=== PATIENT | female | born 1985 | race Caucasian/White ===

== ENCOUNTER 2017-03-18 12:08 | Emergency (ER) | payer MEDICAID ==
[2017-03-18] MEDS ORDERED: MAG HYDROX/AL HYDROX/SIMETH SUSP 30 ML UDCUP PO ONE (12:24)
[2017-03-18] MEDS ORDERED: METOCLOPRAMIDE HCL ORAL SOLN 10 MG/10 ML UDCUP PO ONE (12:24)
[2017-03-18] MEDS ORDERED: LIDOCAINE 2% VISCOUS SOLN 20 ML UDCUP PO ONE (12:24)
--- NOTE | 2017-03-18 12:26 | ER Document Report ---
ED Medical Screen (RME) - General Chief Complaint: Abdominal Cramping Stated Complaint: VOMITING, ABDOMINAL PAIN Time Seen by Provider: 03/18/17 12:21 Mode of Arrival: Ambulatory Information source: Patient TRAVEL OUTSIDE OF THE [place] IN LAST 30 DAYS: No - HPI Patient complains to provider of: Abdominal pain, nausea and vomiting Onset: Other - 2 weeks Onset/Duration: Waxing and waning Notes: 03/18/17 12:25 Patient is a 31-year-old female who presents to the emergency room complaining of abdominal pain with nausea and vomiting has been waxing and waning over the past 2 weeks, she reports a burning sensation with diffuse abdominal cramping, vomiting and diarrhea, no fevers, no dysuria hematuria, denies being , was recently seen at urgent care for similar symptoms and provided with antinausea medication which is not helping - Related Data Allergies/Adverse Reactions: No Known Allergies Allergy (Verified 03/18/17 12:17) Past Medical History - Social History Frequency of alcohol use: None Drug Abuse: None Renal/ Medical History: Denies: Hx Peritoneal Dialysis Past Surgical History: Reports: Hx Gynecologic Surgery - R ovary cyst removed Physical Exam - Vital signs Vitals: Temp Pulse Resp BP Pulse Ox 98.0 F 102 H 16 127/78 H 96 03/18/17 12:14 03/18/17 12:14 03/18/17 12:14 03/18/17 12:14 03/18/17 12:14 Course - Vital Signs Vital signs: Temp Pulse Resp BP Pulse Ox 98.0 F 102 H 16 127/78 H 96 03/18/17 12:14 03/18/17 12:14 03/18/17 12:14 03/18/17 12:14 03/18/17 12:14
[2017-03-18 12:53] LABS: ABSOLUTE EOSINOPHILS # (AUTO) 0.1 10^3/uL (0.0-0.6); ABSOLUTE MONOCYTES (AUTO) 0.4 10^3/uL (0.1-1.4); ABSOLUTE NEUT (AUTO) 4.2 10^3/uL (1.7-8.2); BASOPHILS % (AUTO) 0.6 % (0-2); EOSINOPHILS % (AUTO) 1.1 % (0-6); HEMATOCRIT 40.5 % (36.0-47.0); HEMOGLOBIN 13.6 g/dL (12.0-15.5); HGB HCT DIFFERENCE 0.3; LYMPHOCYTES % (AUTO) 29.7 % (13-45); MEAN CORPUSCULAR HEMOGLOBIN 30.4 pg (27.0-33.4); MEAN CORPUSCULAR HGB CONC 33.7 g/dL (32.0-36.0); MEAN CORPUSCULAR VOLUME 90 fl (80-97); MONOCYTES % (AUTO) 5.3 % (3-13); RED BLOOD COUNT 4.48 10^6/uL (3.72-5.28); RED CELL DISTRIBUTION WIDTH 12.1 % (11.5-14.0); SEGMENTED NEUTROPHILS % (AUTO) 63.3 % (42-78); WHITE BLOOD COUNT 6.6 10^3/uL (4.0-10.5)
[2017-03-18 12:58] LABS: APPEARANCE,URINE CLEAR; BILIRUBIN,URINE NEGATIVE (NEGATIVE); GLUCOSE, URINE NEGATIVE (NEGATIVE); KETONES,URINE NEGATIVE (NEGATIVE); LEUKOCYTE ESTERASE,URINE NEGATIVE (NEGATIVE); NITRITE,URINE NEGATIVE (NEGATIVE); PROTEIN,URINE NEGATIVE (NEGATIVE); URINE SPECIFIC GRAVITY 1.001; UROBILINOGEN,URINE NEGATIVE mg/dL (<2.0)
--- NOTE | 2017-03-18 13:06 | ER Document Report ---
ED GI/ - General Chief Complaint: Abdominal Cramping Stated Complaint: VOMITING, ABDOMINAL PAIN Time Seen by Provider: 03/18/17 12:21 Mode of Arrival: Ambulatory Notes: Patient is complaining of intermittent abdominal pain for the past 2 weeks. She says she has it daily, but at times is not as severe as at other times. She relates that it is worse after eating. She indicates that the pain is located primarily in the center of the abdomen, mostly periumbilical. Not in the right upper quadrant and not in the right lower quadrant. She has been having daily nausea and vomits at least once a day during this past 2 weeks. She is also had daily diarrhea. Has not noticed any blood in either of these specimens. Says she has a problem with chronic urinary frequency, but has been checked and never had anything significant found. Denies any fever. LMP 8/9, regular, on control pills. PMH: Laparoscopy for ruptured ovarian cyst. On medication for depression and anxiety. Denies being more anxious or nervous than usual. Patient also says that she had been a heavy drinker of alcohol for many years, but stopped about a month and a half ago and has not had any alcohol during that time. Smokes cigarettes. TRAVEL OUTSIDE OF THE [place] IN LAST 30 DAYS: No - Related Data Allergies/Adverse Reactions: No Known Allergies Allergy (Verified 03/18/17 12:17) Home Medications: Current Home Medications Alprazolam [Xanax 0.5 mg Tablet] 0.5 mg PO PRN PRN 03/18/17 [History] Sertraline HCl [Zoloft 50 mg Tablet] 50 mg PO DAILY 03/18/17 [History] Past Medical History - General Information source: Patient - Social History Smoking Status: Current Some Day Smoker Frequency of alcohol use: None Drug Abuse: None Family History: Reviewed & Not Pertinent Psychiatric Medical History: Reports: Hx Anxiety, Hx Depression Past Surgical History: Reports: Hx Gynecologic Surgery - R ovary cyst removed by laparoscopy Review of Systems - Review of Systems Notes: REVIEW OF SYSTEMS: CONSTITUTIONAL : Denies fever. EENT: Denies eye, ear, nose or mouth or throat pain or other symptoms. CARDIOVASCULAR: Denies chest pain. RESPIRATORY: Denies cough, chest congestion, or shortness of breath. GASTROINTESTINAL: See HPI. GENITOURINARY: Denies difficulty or painful urinating, urinary frequency, blood in urine. MUSCULOSKELETAL: Denies back or neck pain. Denies joint pain or swelling. SKIN: Denies rash or skin lesions. NEUROLOGICAL: Denies LOC or altered mental status. Denies headache. Denies sensory loss or motor deficits. ALL OTHER SYSTEMS REVIEWED AND NEGATIVE. Physical Exam - Vital signs Vitals: Temp Pulse Resp BP Pulse Ox 98.0 F 102 H 16 127/78 H 96 03/18/17 12:14 03/18/17 12:14 03/18/17 12:14 03/18/17 12:14 03/18/17 12:14 Interpretation: Normal - Notes Notes: PHYSICAL EXAMINATION: GENERAL: Well-appearing, in no acute distress. Vital signs are all normal. HEAD: Atraumatic, normocephalic. ENT: Moist mucous membranes. NECK: Normal range of motion, supple. LUNGS: Breath sounds clear and equal bilaterally. HEART: Regular rate and rhythm without murmurs. ABDOMEN: Soft, only mild periumbilical tenderness. Definitely no guarding or rebound. BACK: No tenderness throughout entire back. EXTREMITIES: Normal range of motion without pain. NEUROLOGICAL: Normal speech, normal gait. Normal sensory, motor, and reflex exams. Awake, alert, and oriented x3. Cranial nerves normal. PSYCH: Normal mood, normal affect. SKIN: Warm, dry, no rashes. Course - Vital Signs Vital signs: Temp Pulse Resp BP Pulse Ox 98.0 F 102 H 19 119/81 98 03/18/17 12:14 03/18/17 12:14 03/18/17 14:45 03/18/17 14:45 03/18/17 14:45 - Laboratory Result Diagrams: 03/18/17 12:44 03/18/17 11:24 Laboratory results interpreted by me: 03/18/17 03/18/17 11:24 12:44 Total Bilirubin 1.7 H Urine Blood SMALL H Discharge - Discharge Clinical Impression: Abdominal pain, Irritable bowel syndrome (IBS) Condition: Stable Disposition: HOME, SELF-CARE Additional Instructions: ABDOMINAL PAIN: There are many causes of abdominal pain. Pain can mean a serious problem requiring surgery (such as appendicitis). It can also be an innocent problem that goes away on its own (such as a viral infection). Often, time must pass to determine the cause of pain. The physician does not feel that hospitalization is necessary, at present. Things may change within the next 24 hours. Call the doctor or come back for re- examination if any problems occur, such as: (1) Pain that becomes more severe, steady, or becomes concentrated in one specific area. Also, pain that is more severe with movement or coughing. (2) Vomiting that persists or becomes more frequent. (3) Blood in the vomitus, urine, or bowel movements. Blood in the stool may have a tarry or black appearance. (4) Shaking chills or fever greater than 100 degrees F. (5) The abdomen becomes more distended or swollen. (6) Bowel movements cease. (7) Failure to improve as expected. NORMAL EXAM AND WORKUP: At this time, your examination and workup show no significant abnormality. No significant abnormal physical findings are noted. All laboratory, EKG, and imaging (x-ray, CT scans, ultrasound) studies that were ordered show no significant abnormality. Although your examination and all studies that were ordered showed no significant abnormal finding, there are no examinations and no studies that are 100% accurate. There is always the possibility that some abnormality could exist and not be detected with physical examination or within the limits and capabilities of laboratory and other studies. You should return or follow up as you were instructed on your visit today for further evaluation if your symptoms do not resolve. You may have irritable Bowel Syndrome The cause of irritable bowel syndrome is unknown. Although often called "colitis", it is not an infection or inflammatory condition. Symptoms vary, but can include periodic abdominal cramping, migratory abdominal pains, diarrhea, or constipation. Commonly, a few days of constipation is followed by loose stools, then constipation begins again. There is no specific test for irritable bowel syndrome. The disease is diagnosed by history and exam findings, and by finding no evidence of other disease. Irritable bowel syndrome is treated by making the stool softer and bulkier. Regular meals, including plenty of soluble fiber, help. Avoid foods which provoke cramping. Stool "bulking agents," such as Metamucil, help. Expect occasional flare-ups. Call the physician if symptoms worsen, such as severe or constant abdominal pain, fever, blood in the stool, increasing constipation, or more frequent or severe diarrhea. ANTISPASMODICS: You have been given a prescription for an antispasmodic medicine. This type of drug is used to decrease cramping and pain in the intestines. It is also used to decrease secretion of internal fluids (such as stomach acid in ulcer disease or pancreatic juice in pancreas disease). This medicine may cause drowsiness, especially with the first dose. Do not operate machinery or drive until all side effects have resolved. Do not combine with alcohol. Other common side effects include dry mouth and eyes. In older persons, antispasmodics can occasionally cause urinary retention, constipation, or trouble focusing the eyes. Glaucoma may be worsened by this medicine. FOLLOW-UP CARE: If you have been referred to a physician for follow-up care, call the physician s office for an appointment as you were instructed or within the next two days. If you experience worsening or a significant change in your symptoms, notify the physician immediately or return to the Emergency Department at any time for re-evaluation. If your symptoms do not resolve with this treatment plan, I recommend he follow- up with a environmental health technician for further evaluation. Prescriptions: Dicyclomine HCl [Bentyl 20 mg Tablet] 40 mg PO QIDP PRN #60 tablet PRN Reason: Forms: Return to Work
[2017-03-18 13:14] LABS: ALANINE AMINOTRANSFERASE 33 U/L (9-52); ALBUMIN 4.6 g/dL (3.5-5.0); ALKALINE PHOSPHATASE 57 U/L (38-126); ANION GAP 12 (5-19); ASPARTATE AMINO TRANSFERASE 27 U/L (14-36); BILIRUBIN,DIRECT 0.3 mg/dL (0.0-0.4); BILIRUBIN,TOTAL 1.7 mg/dL (0.2-1.3); BLOOD UREA NITROGEN 7 mg/dL (7-20); CALCIUM 10.1 mg/dL (8.4-10.2); CARBON DIOXIDE 29 mmol/L (22-30); CHLORIDE 101 mmol/L (98-107); CREATININE RESULT 0.67 mg/dL (0.52-1.25); GLUCOSE 97 mg/dL (75-110); LIPASE 91.9 U/L (23-300); POTASSIUM 3.8 mmol/L (3.6-5.0); SODIUM 141.6 mmol/L (137-145); TOTAL PROTEIN 8.1 g/dL (6.3-8.2)
[2017-03-18 15:01] VITALS: BP 119/81
== END 2017-03-18 15:00 | disposition home or self-care (01) ==
LOC: ER 12:08
DX: R10.33 Periumbilical pain (principal); K58.9 Irritable bowel syndrome, unspecified; F17.200 Nicotine dependence, unspecified, uncomplicated
CPT/HCPCS: 99284; 36415; 83690; 84703; 85025; 80053; 81001; J3490 ×3

== ENCOUNTER 2017-06-19 09:16 | Emergency (ER) | payer MEDICAID ==
[2017-06-19] MEDS ORDERED: ONDANSETRON HCL INJ/PF 4 MG/2 ML SDV IV ONE (09:35)
[2017-06-19] MEDS ORDERED: NORMAL SALINE 1000 ML 1,000 ML IV ONE (09:35)
[2017-06-19] MEDS ORDERED: KETOROLAC TROMETHAMINE 60 MG/2 ML SDV IV ONE (09:35)
--- NOTE | 2017-06-19 09:36 | ER Document Report ---
ED Medical Screen (RME) - General Mode of Arrival: Ambulatory Information source: Patient TRAVEL OUTSIDE OF THE [place] IN LAST 30 DAYS: No - General Chief Complaint: Nausea/Vomiting/Diarrhea Stated Complaint: VOMITING ABDOMINAL PAIN Time Seen by Provider: 06/19/17 09:28 Notes: Patient is a 31 year old female presenting to the emergency department complaining of nausea and vomiting onset 4 days ago. Patient states that she has been dry heaving. Patient states she also has a dull pain in epigastric area and has been dehydrated. Patient was last seen 2 months ago and diagnosed with possible IBS. (JEWEL MIRELES) - Related Data Allergies/Adverse Reactions: No Known Allergies Allergy (Verified 06/19/17 09:26) Past Medical History - General Information source: Patient - Social History Cigarette use (# per day): Yes Chew tobacco use (# tins/day): No Frequency of alcohol use: None Drug Abuse: None Renal/ Medical History: Denies: Hx Peritoneal Dialysis Psychiatric Medical History: Reports: Hx Anxiety, Hx Depression Past Surgical History: Reports: Hx Gynecologic Surgery - R ovary cyst removed by laparoscopy Physical Exam - Vital signs Vitals: Temp Pulse Resp BP Pulse Ox 97.6 F 71 20 111/79 98 06/19/17 09:24 06/19/17 09:24 06/19/17 09:24 06/19/17 09:24 06/19/17 09:24 - Notes Notes: Heart and lungs are normal. epigastrium tender to palpation. (JEWEL MIRELES) - Vital Signs Vital signs: Temp Pulse Resp BP Pulse Ox 97.6 F 71 20 111/79 98 06/19/17 09:24 06/19/17 09:24 06/19/17 09:24 06/19/17 09:24 06/19/17 09:24
[2017-06-19 10:03] LABS: ABSOLUTE LYMPHOCYTES (AUTO) 1.7 10^3/uL (0.5-4.7); ABSOLUTE MONOCYTES (AUTO) 0.5 10^3/uL (0.1-1.4); ABSOLUTE NEUT (AUTO) 7.1 10^3/uL (1.7-8.2); APPEARANCE,URINE CLEAR; BASOPHILS % (AUTO) 0.5 % (0-2); BILIRUBIN,URINE NEGATIVE (NEGATIVE); EOSINOPHILS % (AUTO) 0.3 % (0-6); GLUCOSE, URINE NEGATIVE (NEGATIVE); HEMATOCRIT 43.6 % (36.0-47.0); HGB HCT DIFFERENCE 1.4; KETONES,URINE NEGATIVE (NEGATIVE); LEUKOCYTE ESTERASE,URINE NEGATIVE (NEGATIVE); LYMPHOCYTES % (AUTO) 18.4 % (13-45); MEAN CORPUSCULAR HEMOGLOBIN 29.7 pg (27.0-33.4); MEAN CORPUSCULAR HGB CONC 34.5 g/dL (32.0-36.0); MEAN CORPUSCULAR VOLUME 86 fl (80-97); MONOCYTES % (AUTO) 4.9 % (3-13); NITRITE,URINE NEGATIVE (NEGATIVE); PROTEIN,URINE NEGATIVE (NEGATIVE); RED BLOOD COUNT 5.07 10^6/uL (3.72-5.28); RED CELL DISTRIBUTION WIDTH 13.1 % (11.5-14.0); SEGMENTED NEUTROPHILS % (AUTO) 75.9 % (42-78); URINE SPECIFIC GRAVITY 1.001; UROBILINOGEN,URINE NEGATIVE mg/dL (<2.0); WHITE BLOOD COUNT 9.3 10^3/uL (4.0-10.5)
[2017-06-19 10:29] LABS: ALANINE AMINOTRANSFERASE 41 U/L (9-52); ALKALINE PHOSPHATASE 101 U/L (38-126); ASPARTATE AMINO TRANSFERASE 34 U/L (14-36); BILIRUBIN,DIRECT 0.6 mg/dL (0.0-0.4); BILIRUBIN,TOTAL 1.9 mg/dL (0.2-1.3); BLOOD UREA NITROGEN 5 mg/dL (7-20); CALCIUM 10.6 mg/dL (8.4-10.2); CREATININE RESULT 0.72 mg/dL (0.52-1.25); GLUCOSE 95 mg/dL (75-110); LIPASE 109.2 U/L (23-300); POTASSIUM 3.7 mmol/L (3.6-5.0); TOTAL PROTEIN 8.2 g/dL (6.3-8.2)
[2017-06-19 10:39] LABS: CARBON DIOXIDE 22 mmol/L (22-30); CHLORIDE 102 mmol/L (98-107); SODIUM 143.9 mmol/L (137-145)
[2017-06-19 10:43] LABS: ANION GAP 20 (5-19)
[2017-06-19] MEDS ORDERED: RINGERS SOLUTION,LACTATED 1,000 ML IV ONE (10:43)
--- NOTE | 2017-06-19 10:49 | ER Document Report ---
ED GI/ - General Chief Complaint: Nausea/Vomiting/Diarrhea Stated Complaint: VOMITING ABDOMINAL PAIN Time Seen by Provider: 06/19/17 09:28 Mode of Arrival: Ambulatory Notes: Patient says that she has been having abdominal "burning" for the past week, primarily located in the epigastric region. She has been vomiting for the past 4 days and has had diarrhea for the past week. No blood in either of these. Denies any fever. Patient had a very similar presentation here about 3 months ago, in March, and her workup was normal and it was postulated that she may be having irritable bowel syndrome. Patient has anxiety and depression and is on Zoloft and Xanax normally. Her only abdominal procedure was a laparoscopic procedure for ruptured ovarian cyst. Patient stop smoking about 5 days ago. Denies alcohol. TRAVEL OUTSIDE OF THE [place] IN LAST 30 DAYS: No - Related Data Allergies/Adverse Reactions: No Known Allergies Allergy (Verified 06/19/17 09:26) Past Medical History - General Information source: Patient - Social History Smoking Status: Current Every Day Smoker Cigarette use (# per day): Yes - Stopped smoking 5 days ago Chew tobacco use (# tins/day): No Frequency of alcohol use: None Drug Abuse: None Family History: Reviewed & Not Pertinent Patient has suicidal ideation: No Patient has homicidal ideation: No GI Medical History: Reports: Hx Irritable Bowel - Possible Psychiatric Medical History: Reports: Hx Anxiety, Hx Depression Past Surgical History: Reports: Hx Gynecologic Surgery - R ovary cyst removed by laparoscopy Review of Systems - Review of Systems Notes: REVIEW OF SYSTEMS: CONSTITUTIONAL : Denies fever. EENT: Denies eye, ear, nose or mouth or throat pain or other symptoms. CARDIOVASCULAR: Denies chest pain. RESPIRATORY: Denies cough, chest congestion, or shortness of breath. GASTROINTESTINAL: See HPI. GENITOURINARY: Denies difficulty or painful urinating, urinary frequency, blood in urine. MUSCULOSKELETAL: Denies back or neck pain. Denies joint pain or swelling. SKIN: Denies rash or skin lesions. NEUROLOGICAL: Denies LOC or altered mental status. Denies headache. Denies sensory loss or motor deficits. ALL OTHER SYSTEMS REVIEWED AND NEGATIVE. Physical Exam - Vital signs Vitals: Temp Pulse Resp BP Pulse Ox 97.6 F 71 20 111/79 98 06/19/17 09:24 06/19/17 09:24 06/19/17 09:24 06/19/17 09:24 06/19/17 09:24 Interpretation: Normal - Notes Notes: PHYSICAL EXAMINATION: GENERAL: Well-appearing, in no acute distress. Vital signs are all normal. HEAD: Atraumatic, normocephalic. ENT: oropharynx clear without exudates. Moist mucous membranes. NECK: Normal range of motion, supple. LUNGS: Breath sounds clear and equal bilaterally. HEART: Regular rate and rhythm without murmurs. ABDOMEN: Soft, tender epigastrium. No guarding or rebound. No masses felt. BACK: No tenderness throughout entire back. EXTREMITIES: Normal range of motion without pain. NEUROLOGICAL: Normal speech, normal gait. Normal sensory, motor, and reflex exams. Awake, alert, and oriented x3. Cranial nerves normal. PSYCH: Normal mood, normal affect. Anxious. SKIN: Warm, dry, no rashes. Course - Re-evaluation Re-evalutation: 06/19/17 12:51 Patient says that the Bentyl did not help her discomfort any. I prescribed this for her after her last visit when I was with her attending physician and she says they have not helped. She tells me she is in the midst of having a bad month and ran out of her Xanax and will be able to get anymore until she is seen by her counselor at [facility] on Thursday. I agreed to write her a prescription for a dozen Xanax to hold her until she can be seen Thursday. She requested to be discharged with some Zofran, as well. Abdomen remains very soft and nontender. - Vital Signs Vital signs: Temp Pulse Resp BP Pulse Ox 97.6 F 71 20 111/79 98 06/19/17 09:24 06/19/17 09:24 06/19/17 09:24 06/19/17 09:24 06/19/17 09:24 - Laboratory Result Diagrams: 06/19/17 09:45 06/19/17 09:45 Laboratory results interpreted by me: 06/19/17 06/19/17 09:45 09:45 Anion Gap 20 H BUN 5 L Calcium 10.6 H Total Bilirubin 1.9 H Direct Bilirubin 0.6 H Urine Blood SMALL H Discharge - Discharge Clinical Impression: Abdominal pain, Anxiety Condition: Stable Disposition: HOME, SELF-CARE Additional Instructions: ABDOMINAL PAIN: There are many causes of abdominal pain. Pain can mean a serious problem requiring surgery (such as appendicitis). It can also be an innocent problem that goes away on its own (such as a viral infection). Often, time must pass to determine the cause of pain. The physician does not feel that hospitalization is necessary, at present. Things may change within the next 24 hours. Call the doctor or come back for re- examination if any problems occur, such as: (1) Pain that becomes more severe, steady, or becomes concentrated in one specific area. Also, pain that is more severe with movement or coughing. (2) Vomiting that persists or becomes more frequent. (3) Blood in the vomitus, urine, or bowel movements. Blood in the stool may have a tarry or black appearance. (4) Shaking chills or fever greater than 100 degrees F. (5) The abdomen becomes more distended or swollen. (6) Bowel movements cease. (7) Failure to improve as expected. NORMAL EXAM AND WORKUP: At this time, your examination and workup show no significant abnormality. No significant abnormal physical findings are noted. All laboratory, EKG, and imaging (x-ray, CT scans, ultrasound) studies that were ordered show no significant abnormality. Although your examination and all studies that were ordered showed no significant abnormal finding, there are no examinations and no studies that are 100% accurate. There is always the possibility that some abnormality could exist and not be detected with physical examination or within the limits and capabilities of laboratory and other studies. You should return or follow up as you were instructed on your visit today for further evaluation if your symptoms do not resolve. TORADOL INJECTION: You have been given an injection of ketorolac tromethamine (Toradol). This is an excellent, safe drug for pain control. It also has potent antiinflammatory action. You should have significant pain relief within about one hour. Toradol is not addicting and is non-sedating. It does not interfere with driving or work. Call or return if you develop itching, hives, shortness of breath, or rash. ANTINAUSEA MEDICATION: You have been given a medication to suppress nausea and vomiting. This type of medication can be given as a shot, pill, or suppository. It will usually last for many hours. Pills and shots usually last six to eight hours, suppositories last about 12 hours. For the typical illness, only one or two doses of the medication may be necessary. Mild lightheadedness may occur. This type of medicine can cause drowsiness. Do not drive or operate dangerous machinery while under its influence. Do not mix with alcohol. See your doctor at once if you have muscle spasms or tightness, or uncontrollable motions (particularly of the neck, mouth, or jaw). Persistent vomiting or severe lightheadedness should also be evaluated by the physician. Anxiety The physician feels that some of your health problems are being caused by anxiety. Anxiety affects your health in many ways. Anxiety alone can cause palpitations, sweats, chest pains, abdominal pains, shortness of breath, and headaches. It contributes to ulcer disease, high blood pressure, irritable bowel syndrome, and has been shown to cause flare-ups of many other diseases. Anxiety is not a simple disorder to treat. If the anxiety is due to recent life stresses, you may simply need time to "work through" the changes. If the anxiety is due to an underlying unhappiness with yourself or due to psychiatric disturbance, professional help will be needed. Your physician can refer you for further help if needed. Anti-anxiety medication is occasionally given if the stress is acute or if you are having trouble sleeping. Chronic or frequent use of these medications is not a good idea because the body becomes reliant on it, preventing you from dealing with life's normal stresses. Benzodiazepines You have been given a benzodiazepine medication. Examples of this type of medicine include Valium, Xanax, Librium, Ativan, and Halcion. Benzodiazepines have many uses. Medications of this type are used for insomnia, anxiety, muscle spasms, seizures, and drug and alcohol withdrawal. You may become very drowsy when you first take the medication. You should not drive or operate machinery while under its effects. Do not combine the medication with alcohol, or with any other medication without talking to your doctor. Do not take if without specific instruction from your report clerk. Some benzodiazepines may have harmful interactions with oral antifungal medicines such as ketoconazole, itraconazole, and nefazodone. If you are taking an antifungal medicine, discuss this with your doctor before taking benzodiazepines. FOLLOW-UP CARE: If you have been referred to a physician for follow-up care, call the physician s office for an appointment as you were instructed or within the next two days. If you experience worsening or a significant change in your symptoms, notify the physician immediately or return to the Emergency Department at any time for re-evaluation. Keep your appointment Thursday at [facility]. Prescriptions: Alprazolam [Xanax 0.5 mg Tablet] 0.5 mg PO TIDP PRN #12 tablet PRN Reason: Ondansetron [Zofran Odt 4 mg Tablet] 1 - 2 tab PO Q4H PRN #10 tab.rapdis PRN Reason: For Nausea/Vomiting
[2017-06-19] MEDS ORDERED: DICYCLOMINE HCL 20 MG TABLET PO ONE (11:22)
[2017-06-19 13:08] VITALS: BP 121/65
== END 2017-06-19 13:19 | disposition home or self-care (01) ==
LOC: ER 09:16
DX: R10.9 Unspecified abdominal pain (principal); F41.9 Anxiety disorder, unspecified; R11.2 Nausea with vomiting, unspecified; R19.7 Diarrhea, unspecified; F32.9 Major depressive disorder, single episode, unspecified; Z79.899 Other long term (current) drug therapy; F17.210 Nicotine dependence, cigarettes, uncomplicated
CPT/HCPCS: 99284; 96361; 96374; 96375; 36415; 83690; 84703; 85025; 80053; 81001; J3490; J1885; J2405; J7030; J7120

== ENCOUNTER 2018-05-21 17:16 | Emergency (ER) | payer SELFPAY ==
[2018-05-21 17:45] LABS: APPEARANCE,URINE CLEAR; BILIRUBIN,URINE NEGATIVE (NEGATIVE); COLOR,URINE YELLOW; GLUCOSE, URINE NEGATIVE (NEGATIVE); KETONES,URINE NEGATIVE (NEGATIVE); LEUKOCYTE ESTERASE,URINE NEGATIVE (NEGATIVE); NITRITE,URINE NEGATIVE (NEGATIVE); PROTEIN,URINE NEGATIVE (NEGATIVE); URINE SPECIFIC GRAVITY 1.015; UROBILINOGEN,URINE NEGATIVE mg/dL (<2.0)
--- NOTE | 2018-05-21 17:47 | ER Document Report ---
ED Medical Screen (RME) - General Chief Complaint: Vag Bleeding, +preg <12wks Stated Complaint: VAGINAL BLEEDING Time Seen by Provider: 05/21/18 17:43 Mode of Arrival: Ambulatory Information source: Patient Notes: 32-year-old is about 8 weeks . She had vaginal bleeding this morning. She has right-sided pelvic pain and right flank pain. No dysuria frequency or urgency. When she was evacuated on April 22 in [place] they did a quantitative and it was 202 days later was 600. The transvaginal ultrasound at that time showed a gestational sac. She has not had any bleeding except for today. She knows that she is Rh- and will need RhoGam. Vital signs are stable. TRAVEL OUTSIDE OF THE [place] IN LAST 30 DAYS: No - Related Data Allergies/Adverse Reactions: No Known Allergies Allergy (Verified 05/21/18 17:18) Past Medical History Renal/ Medical History: Denies: Hx Peritoneal Dialysis GI Medical History: Reports: Hx Irritable Bowel - Possible Psychiatric Medical History: Reports: Hx Anxiety, Hx Depression Past Surgical History: Reports: Hx Gynecologic Surgery - R ovary cyst removed by laparoscopy Physical Exam - Vital signs Vitals: Temp Pulse Resp BP Pulse Ox 98.1 F 89 16 120/72 98 05/21/18 17:28 05/21/18 17:28 05/21/18 17:28 05/21/18 17:28 05/21/18 17:28 Course - Vital Signs Vital signs: Temp Pulse Resp BP Pulse Ox 98.1 F 89 16 120/72 98 05/21/18 17:28 05/21/18 17:28 05/21/18 17:28 05/21/18 17:28 05/21/18 17:28 - Laboratory Laboratory results interpreted by me: 05/21/18 17:20 Urine Blood SMALL H
[2018-05-21 18:38] LABS: ABSOLUTE BASOPHILS # (AUTO) 0.1 10^3/uL (0.0-0.2); ABSOLUTE EOSINOPHILS # (AUTO) 0.1 10^3/uL (0.0-0.6); ABSOLUTE LYMPHOCYTES (AUTO) 2.2 10^3/uL (0.5-4.7); ABSOLUTE MONOCYTES (AUTO) 0.5 10^3/uL (0.1-1.4); ABSOLUTE NEUT (AUTO) 6.1 10^3/uL (1.7-8.2); BASOPHILS % (AUTO) 0.6 % (0-2); EOSINOPHILS % (AUTO) 1.3 % (0-6); HEMATOCRIT 42.4 % (36.0-47.0); HEMOGLOBIN 14.7 g/dL (12.0-15.5); LYMPHOCYTES % (AUTO) 24.8 % (13-45); MEAN CORPUSCULAR HEMOGLOBIN 31.2 pg (27.0-33.4); MEAN CORPUSCULAR HGB CONC 34.8 g/dL (32.0-36.0); MEAN CORPUSCULAR VOLUME 90 fl (80-97); MONOCYTES % (AUTO) 5.5 % (3-13); PLATELET COUNT 267 10^3/uL (150-450); RED BLOOD COUNT 4.72 10^6/uL (3.72-5.28); RED CELL DISTRIBUTION WIDTH 12.9 % (11.5-14.0); SEGMENTED NEUTROPHILS % (AUTO) 67.8 % (42-78); TOTAL CELLS COUNTED % (AUTO) 100 %
--- NOTE | 2018-05-21 18:50 | ER Document Report ---
ED GI/ - General Chief Complaint: Vag Bleeding, +preg <12wks Stated Complaint: VAGINAL BLEEDING Time Seen by Provider: 05/21/18 17:43 Mode of Arrival: Ambulatory Information source: Patient Notes: Patient presents and reports that she may be about 8 weeks although she has not had any care thus far. Patient complains of an episode of vaginal bleeding earlier today. Patient states she knows she is Rh- and is here for the RhoGam injection. Patient did have some right-sided lower pelvic tenderness with back pain off and on over the past 2 weeks. Patient denies any fever. TRAVEL OUTSIDE OF THE [place] IN LAST 30 DAYS: No - HPI Patient complains to provider of: Pelvic pain, , Vaginal bleeding. No: Vaginal discharge Onset: Other - Pelvic pain for 2 weeks, vaginal bleeding today Timing/Duration: Waxing and waning Quality of pain: Cramping Pain Level: 1 Context: Location: Pelvis Vaginal bleeding (Compared to normal period): Spotting Associated symptoms: denies: Chest pain, Dysuria, Fever, Loss of appetite, Nausea, Urinary hesitancy, Urinary frequency, Urinary retention, Vaginal discharge Exacerbated by: Denies Relieved by: Denies Similar symptoms previously: No Recently seen / treated by doctor: No - Related Data Allergies/Adverse Reactions: No Known Allergies Allergy (Verified 05/21/18 17:18) Past Medical History - General Information source: Patient Last Menstrual Period: 8 weeks - Social History Smoking Status: Never Smoker Frequency of alcohol use: None Drug Abuse: None Occupation: None Lives with: Family Family History: Reviewed & Not Pertinent Renal/ Medical History: Denies: Hx Peritoneal Dialysis GI Medical History: Reports: Hx Irritable Bowel - Possible Psychiatric Medical History: Reports: Hx Anxiety, Hx Depression Past Surgical History: Reports: Hx Gynecologic Surgery - R ovary cyst removed by laparoscopy Review of Systems - Review of Systems Constitutional: No symptoms reported. denies: Fever, Recent illness EENT: No symptoms reported Cardiovascular: No symptoms reported. denies: Chest pain Respiratory: No symptoms reported. denies: Cough, Short of breath Gastrointestinal: Abdominal pain - Right lower pelvic. denies: Diarrhea, Nausea , Vomiting Genitourinary: Flank pain - Right flank off and on. denies: Dysuria Female Genitourinary: , Vaginal bleeding Musculoskeletal: No symptoms reported Skin: No symptoms reported Hematologic/Lymphatic: No symptoms reported Neurological/Psychological: No symptoms reported. denies: Headaches Physical Exam - Vital signs Vitals: Temp Pulse Resp BP Pulse Ox 98.1 F 89 16 120/72 98 05/21/18 17:28 05/21/18 17:28 05/21/18 17:28 05/21/18 17:28 05/21/18 17:28 - General General appearance: Appears well, Alert In distress: None - HEENT Head: Normocephalic, Atraumatic Eyes: Normal Conjunctiva: Normal Nasal: Normal Mouth/Lips: Normal Mucous membranes: Normal Neck: Normal, Supple. No: Lymphadenopathy - Respiratory Respiratory status: No respiratory distress Chest status: Nontender Breath sounds: Normal Chest palpation: Normal - Cardiovascular Rhythm: Regular Heart sounds: S1 appreciated, S2 appreciated Murmur: No - Abdominal Inspection: Obese Distension: No distension Bowel sounds: Normal Tenderness: Tender - R lower pelvic, suprapubic Organomegaly: No organomegaly - Genitourinary External exam: Normal Speculum exam: Cervix closed. No: Vaginal discharge Vaginal bleeding: None Bimanuel exam: Normal. No: Cervical motion tender, Adnexal mass, Adnexal tenderness - Back Back: Normal, Nontender. No: CVA tenderness - Extremities General upper extremity: Normal inspection, Normal ROM General lower extremity: Normal inspection, Normal ROM - Neurological Neuro grossly intact: Yes Cognition: Normal [place] Coma Scale Eye Opening: Spontaneous [place] Coma Scale Verbal: Oriented [place] Coma Scale Motor: Obeys Commands [place] Coma Scale Total: 15 - Psychological Associated symptoms: Normal affect, Normal mood - Skin Skin Temperature: Warm Skin Moisture: Dry Skin Color: Normal Course - Re-evaluation Re-evalutation: 05/21/18 21:55 Patient without any active bleeding at this time. Patient advised of ultrasound findings. Patient encouraged to get established with an PHYSICIAN EXECUTIVE for care and follow-up from today's visit. Patient hemodynamically stable without any signs worrisome for anemia. Patient does report episode of tenderness intermittently for 2 weeks. No McBurney point tenderness. No leukocytosis, patient is afebrile. No concern for appendicitis at this time. Patient's abdomen is soft without any guarding. Good return precautions given. Patient presents with abdominal pain without signs of peritonitis or other life-threatening or serious etiology. Patient appears stable for discharge and has been instructed to return immediately if the symptoms worsen in any way for reevaluation. The patient has been instructed to return if the symptoms worsen or change in any way. - Vital Signs Vital signs: Temp Pulse Resp BP Pulse Ox 97.8 F 73 16 112/70 99 05/21/18 22:17 05/21/18 22:17 05/21/18 22:17 05/21/18 22:17 05/21/18 22:17 - Laboratory Result Diagrams: 05/21/18 18:28 05/21/18 18:28 Laboratory results interpreted by me: 05/21/18 05/21/18 17:20 18:28 Total Protein 8.7 H Beta HCG, Quant 08458.00 H Urine Blood SMALL H 05/21/18 21:56 Labs- Entire Visit 05/21/18 05/21/18 05/21/18 17:20 18:28 18:28 WBC 9.0 RBC 4.72 Hgb 14.7 Hct 42.4 MCV 90 MCH 31.2 MCHC 34.8 RDW 12.9 Plt Count 267 Seg Neutrophils % 67.8 Lymphocytes % 24.8 Monocytes % 5.5 Eosinophils % 1.3 Basophils % 0.6 Absolute Neutrophils 6.1 Absolute Lymphocytes 2.2 Absolute Monocytes 0.5 Absolute Eosinophils 0.1 Absolute Basophils 0.1 Sodium 138.8 Potassium 4.4 Chloride 100 Carbon Dioxide 26 Anion Gap 13 BUN 10 Creatinine 0.60 Est GFR ( Amer) > 60 Est GFR (Non-Af Amer) > 60 Glucose 92 Calcium 10.2 Total Bilirubin 1.3 Direct Bilirubin 0.3 Neonat Total Bilirubin Not Reportable Neonat Direct Bilirubin Not Reportable Neonat Indirect Bili Not Reportable AST 25 ALT 18 Alkaline Phosphatase 87 Total Protein 8.7 H Albumin 5.0 Beta HCG, Quant 15485.00 H Total Beta HCG POSITIVE Urine Color YELLOW Urine Appearance CLEAR Urine pH 7.0 Ur Specific [place] 1.015 Urine Protein NEGATIVE Urine Glucose (UA) NEGATIVE Urine Ketones NEGATIVE Urine Blood SMALL H Urine Nitrite NEGATIVE Urine Bilirubin NEGATIVE Urine Urobilinogen NEGATIVE Ur Leukocyte Esterase NEGATIVE Urine WBC (Auto) 2 Urine RBC (Auto) 3 Squamous Epi Cells Auto 2 Urine Mucus (Auto) OCC Urine Ascorbic Acid NEGATIVE Epi Cells (Wet Prep) Bacteria (Wet Prep) Trichomonas (Wet Prep) Vaginal WBC Vaginal RBC Vaginal Yeast Blood Type Antibody Screen Rhogam Indicated 05/21/18 05/21/18 18:28 20:15 WBC RBC Hgb Hct MCV MCH MCHC RDW Plt Count Seg Neutrophils % Lymphocytes % Monocytes % Eosinophils % Basophils % Absolute Neutrophils Absolute Lymphocytes Absolute Monocytes Absolute Eosinophils Absolute Basophils Sodium Potassium Chloride Carbon Dioxide Anion Gap BUN Creatinine Est GFR ( Amer) Est GFR (Non-Af Amer) Glucose Calcium Total Bilirubin Direct Bilirubin Neonat Total Bilirubin Neonat Direct Bilirubin Neonat Indirect Bili AST ALT Alkaline Phosphatase Total Protein Albumin Beta HCG, Quant Total Beta HCG Urine Color Urine Appearance Urine pH Ur Specific [place] Urine Protein Urine Glucose (UA) Urine Ketones Urine Blood Urine Nitrite Urine Bilirubin Urine Urobilinogen Ur Leukocyte Esterase Urine WBC (Auto) Urine RBC (Auto) Squamous Epi Cells Auto Urine Mucus (Auto) Urine Ascorbic Acid Epi Cells (Wet Prep) 3+ EPITHELIALS SEEN Bacteria (Wet Prep) 3+ BACTERIA SEEN Trichomonas (Wet Prep) NO TRICHOMONAS SEEN Vaginal WBC 1+ WBCS SEEN Vaginal RBC RARE RBCS SEEN Vaginal Yeast NO YEAST SEEN Blood Type A NEGATIVE Antibody Screen NEGATIVE Rhogam Indicated RHOGAM REQUESTED - Diagnostic Test Radiology reviewed: Reports reviewed Discharge - Discharge Clinical Impression: Bacterial vaginosis, Intrauterine , Vaginal spotting Condition: Stable Disposition: HOME, SELF-CARE Instructions: Bleeding During Early ([facility]), Rhogam ([facility]), Vaginosis, Bacterial ([facility]) Additional Instructions: Return immediately for any new or worsening symptoms Followup with your primary care provider, call tomorrow to make a followup appointment Follow-up with an PHYSICIAN EXECUTIVE provider for a recheck, call Thursday for an appointment Prescriptions: Metronidazole [Flagyl 500 mg Tablet] 500 mg PO BID #14 tablet Referrals: [facility] [Provider Group] - Follow up in 3-5 days
[2018-05-21 18:56] LABS: ALANINE AMINOTRANSFERASE 18 U/L (9-52); ALKALINE PHOSPHATASE 87 U/L (38-126); ANION GAP 13 (5-19); ASPARTATE AMINO TRANSFERASE 25 U/L (14-36); BILIRUBIN,DIRECT 0.3 mg/dL (0.0-0.4); BILIRUBIN,TOTAL 1.3 mg/dL (0.2-1.3); BLOOD UREA NITROGEN 10 mg/dL (7-20); CALCIUM 10.2 mg/dL (8.4-10.2); CARBON DIOXIDE 26 mmol/L (22-30); CHLORIDE 100 mmol/L (98-107); GLUCOSE 92 mg/dL (75-110); POTASSIUM 4.4 mmol/L (3.6-5.0); SODIUM 138.8 mmol/L (137-145); TOTAL PROTEIN 8.7 g/dL (6.3-8.2)
[2018-05-21 20:35] LABS: BACTERIA (WET MOUNT) 3+ BACTERIA SEEN; EPITHELIALS (WET MOUNT) 3+ EPITHELIALS SEEN; RBCS (WET MOUNT) RARE RBCS SEEN; T.VAGINALIS (WET MOUNT) NO TRICHOMONAS SEEN; WBCS (WET MOUNT) 1+ WBCS SEEN; YEAST (WET MOUNT) NO YEAST SEEN
--- NOTE | 2018-05-21 21:15 | RADIOLOGY REPORT (SQ) ---
EXAM DESCRIPTION: US TRANSVAGINAL COMPLETED DATE/TME: 05/21/2018 18:21 CLINICAL HISTORY: 32 years, Female, right pelvic pain, bleeding, 8 weeks Findings: There is a single viable IUP with estimated gestational age of six weeks and zero days. pole demonstrates decreased heart rate of 87 bpm. Cervix measures 3.3 cm. Uterus is anteverted and measures 8.7 x 5.8 x 4.8 cm. Maternal ovaries are within normal limits. No abnormal adnexal masses. No significant free fluid in the cul-de-sac. IMPRESSION: Single viable IUP of six weeks and zero days with probable bradycardia of 87 bpm.
[2018-05-21 22:02] LABS: CHLAM PCR NOT DETECTED (NOT DETECT); GON PCR NOT DETECTED (NOT DETECT)
[2018-05-21 22:20] VITALS: BP 112/70
== END 2018-05-21 23:00 | disposition home or self-care (01) ==
LOC: ER 17:16
DX: O26.851 Spotting complicating pregnancy, first trimester (principal); O23.591 Infection of other part of genital tract in pregnancy, first trimester; B96.89 Other specified bacterial agents as the cause of diseases classified elsewhere; O26.891 Other specified pregnancy related conditions, first trimester; R10.2 Pelvic and perineal pain; O99.89 Other specified diseases and conditions complicating pregnancy, childbirth and the puerperium; M54.9 Dorsalgia, unspecified; Z3A.01 Less than 8 weeks gestation of pregnancy
CPT/HCPCS: 99284; 96372; 86900; 86901; 36415; 87086; 87210; 86850; 84702; 85025; 80053; 81001; 87491; 87591; 76817; 93976; J2790

== ENCOUNTER 2018-06-22 15:06 | Emergency (ER) | payer SELFPAY ==
[2018-06-22] MEDS ORDERED: NORMAL SALINE 1000 ML 1,000 ML IV ONE (15:49)
--- NOTE | 2018-06-22 15:49 | ER Document Report ---
ED General - General Chief Complaint: Abdominal Pain Stated Complaint: ABDOMINAL PAIN Time Seen by Provider: 06/22/18 15:45 Notes: Patient is a 32-year-old female that presents to the emergency department for chief complaint of right upper quadrant pain, and nausea. Patient reports she has been having these symptoms on and off for over a month now. She reports she was diagnosed with possible kidney stone versus infection, and was treated for that with antibiotics, and Flomax, she did not have confirmatory testing for this however she was diagnosed as an outpatient at her primary care physician's office. She states that her symptoms persist, is worse after eating meals, she is cut back fatty foods, which seems to help to a degree. The pain is off and on, at this time she describes it as a 6 out of 10, is an aching and sharp sensation just under the right ribs. Has associated nausea but no vomiting. Denies any urinary complaints at this time. Past Medical History: Denies chronic medical conditions Past Surgical History: Laparoscopy Social History: Denies tobacco, alcohol or drug use Family History: Reviewed and noncontributory for presenting illness Allergies: Reviewed, see documented allergy list. REVIEW OF SYSTEMS: Other than noted above, the 12 point review of systems was reviewed with the patient and were negative, all pertinent findings are included in the HPI. PHYSICAL EXAMINATION: Vital signs reviewed, nursing noted reviewed. GENERAL: Well-appearing, well-nourished and in no acute distress. HEAD: Atraumatic, normocephalic. EYES: Eyes appear normal, extraocular movements intact, sclera anicteric, conjunctiva are normal. ENT: nares patent, oropharynx clear without exudates. Moist mucous membranes. NECK: Normal range of motion, supple without lymphadenopathy LUNGS: Breath sounds clear to auscultation bilaterally and equal. No wheezes rales or rhonchi. HEART: Regular rate and rhythm without murmurs ABDOMEN: Soft, right upper quadrant tenderness, normoactive bowel sounds. No rebound, guarding, or rigidity. No masses appreciated. EXTREMITIES: Nontender, good range of motion, no pitting or edema. NEUROLOGICAL: No focal neurological deficits. Moves all extremities spontaneously Motor and sensory grossly intact on exam. PSYCH: Normal mood, normal affect. SKIN: Warm, Dry, normal turgor, no rashes or lesions noted on exposed skin TRAVEL OUTSIDE OF THE [place] IN LAST 30 DAYS: No - Related Data Allergies/Adverse Reactions: No Known Allergies Allergy (Verified 06/22/18 15:07) Past Medical History - Social History Smoking Status: Current Every Day Smoker Chew tobacco use (# tins/day): No Frequency of alcohol use: None Drug Abuse: None Family History: Reviewed & Not Pertinent Patient has suicidal ideation: No Patient has homicidal ideation: No Renal/ Medical History: Denies: Hx Peritoneal Dialysis GI Medical History: Reports: Hx Irritable Bowel - Possible Psychiatric Medical History: Reports: Hx Anxiety, Hx Depression Past Surgical History: Reports: Hx Gynecologic Surgery - R ovary cyst removed by laparoscopy Physical Exam - Vital signs Vitals: Temp Pulse Resp BP Pulse Ox 98.3 F 88 18 111/59 L 97 06/22/18 15:10 06/22/18 15:10 06/22/18 15:10 06/22/18 15:10 06/22/18 15:10 Course - Re-evaluation Re-evalutation: Patient seen and examined vital signs reviewed. Laboratory data and imaging were ordered as appropriate for the patient's presenting symptoms and complaint, with consideration of any critical or life threatening conditions that may be associated with their obtained history and exam as noted above. Patient was treated with IV fluids, IV Zofran and IV Dilaudid Results were reviewed when available and demonstrated negative right upper quadrant ultrasound with the exception of fatty liver, blood work was unremarkable, she did have positive hCG, patient did have a recent miscarriage, this is downtrending from prior labs, she has not had sexual intercourse since her miscarriage, therefore is extremely unlikely. The patient was re-evaluated and was improved, still having mild discomfort Evaluation was most consistent with biliary colic, patient given referral to surgery, she is given a discharge pack of both Zofran and [place] to take if needed at home, highly encouraged to follow-up with surgery as the patient likely need outpatient evaluation of her gallbladder and possible outpatient cholecystectomy. Results were discussed with the patient at this point, after careful consideration I feel that that patient can be discharged from the emergency department, the patient was educated treatments and reasons to return to the emergency department based on their presumed diagnosis as noted above, they were advised to followup with a primary care physician in 2-3 days. Patient was agreeable to plan of care. *Note is created using voice recognition software and may contain spelling, syntax or grammatical errors. Laboratory 06/22/18 06/22/18 06/22/18 15:55 16:30 16:30 WBC 7.7 RBC 3.77 Hgb 11.1 L Hct 32.6 L MCV 87 MCH 29.3 MCHC 33.9 RDW 13.0 Plt Count 284 Seg Neutrophils % 64.7 Lymphocytes % 27.5 Monocytes % 6.0 Eosinophils % 1.3 Basophils % 0.5 Absolute Neutrophils 4.9 Absolute Lymphocytes 2.1 Absolute Monocytes 0.5 Absolute Eosinophils 0.1 Absolute Basophils 0.0 Sodium 141.9 Potassium 4.0 Chloride 103 Carbon Dioxide 27 Anion Gap 12 BUN 14 Creatinine 0.72 Est GFR ( Amer) > 60 Est GFR (Non-Af Amer) > 60 Glucose 96 Calcium 9.8 Total Bilirubin 1.1 Direct Bilirubin 0.2 Neonat Total Bilirubin Not Reportable Neonat Direct Bilirubin Not Reportable Neonat Indirect Bili Not Reportable AST 21 ALT 13 Alkaline Phosphatase 64 Total Protein 7.9 Albumin 4.7 Lipase 80.8 Beta HCG, Quant 203.05 H Total Beta HCG POSITIVE Urine Color YELLOW Urine Appearance CLOUDY Urine pH 5.0 Ur Specific [place] 1.021 Urine Protein NEGATIVE Urine Glucose (UA) NEGATIVE Urine Ketones NEGATIVE Urine Blood SMALL H Urine Nitrite NEGATIVE Urine Bilirubin NEGATIVE Urine Urobilinogen NEGATIVE Ur Leukocyte Esterase SMALL H Urine WBC (Auto) 7 Urine RBC (Auto) 3 Urine Bacteria (Auto) TRACE Squamous Epi Cells Auto 33 Urine Mucus (Auto) MANY Urine Ascorbic Acid NEGATIVE Urine HCG, Qual POSITIVE H Abdomen Ultrasound 06/22/18 15:50 IMPRESSION: Fatty infiltration of the liver. Contracted gallbladder. No stones are seen. - Vital Signs Vital signs: Temp Pulse Resp BP Pulse Ox 97.6 F 70 16 116/66 100 06/22/18 18:28 06/22/18 18:28 06/22/18 18:28 06/22/18 18:28 06/22/18 18:28 - Laboratory Result Diagrams: 06/22/18 16:30 06/22/18 16:30 Laboratory results interpreted by me: 06/22/18 06/22/18 06/22/18 15:55 16:30 16:30 Hgb 11.1 L Hct 32.6 L Beta HCG, Quant 203.05 H Urine Blood SMALL H Ur Leukocyte Esterase SMALL H Urine HCG, Qual POSITIVE H Discharge - Discharge Clinical Impression: Abdominal pain Qualifiers: Abdominal location: right upper quadrant Qualified Code(s): R10.11 - Right upper quadrant pain Condition: Stable Disposition: HOME, SELF-CARE Instructions: Abdominal Pain ([facility]) Additional Instructions: Please follow-up with the surgeon listed on you discharge paperwork, as you may need outpatient surgery, if your symptoms persist, or do not improve, and you develop fevers, or consistent vomiting, please return to the emergency department immediately. Prescriptions: Ondansetron [Zofran Odt 4 mg Tablet] 1 tab PO Q8H PRN #15 tab.rapdis PRN Reason: For Nausea/Vomiting Referrals: FERMIN JACK MD [ACTIVE STAFF] - Follow up tomorrow (general surgeon)
[2018-06-22] MEDS ORDERED: ONDANSETRON HCL INJ/PF 4 MG/2 ML SDV IV ONE (15:50)
[2018-06-22] MEDS ORDERED: HYDROMORPHONE HCL INJ/PF 2 MG/ML AMPULE IV ONE (15:51)
[2018-06-22 16:21] LABS: APPEARANCE,URINE CLOUDY; BILIRUBIN,URINE NEGATIVE (NEGATIVE); COLOR,URINE YELLOW; GLUCOSE, URINE NEGATIVE (NEGATIVE); KETONES,URINE NEGATIVE (NEGATIVE); LEUKOCYTE ESTERASE,URINE SMALL (NEGATIVE); NITRITE,URINE NEGATIVE (NEGATIVE); PROTEIN,URINE NEGATIVE (NEGATIVE); URINE SPECIFIC GRAVITY 1.021; UROBILINOGEN,URINE NEGATIVE mg/dL (<2.0)
--- NOTE | 2018-06-22 16:39 | RADIOLOGY REPORT (SQ) ---
EXAM DESCRIPTION: U/S ABDOMEN LIMITED W/O DOP COMPLETED DATE/TIME: 06/22/2018 4:17 pm REASON FOR STUDY: ruq pain COMPARISON: None. TECHNIQUE: Dynamic and static grayscale images acquired of the abdomen and recorded on PACS. Uliseso jhon selected color Doppler and spectral images recorded. LIMITATIONS: None. FINDINGS: PANCREAS: No masses. Visualized pancreatic duct normal caliber. LIVER: Somewhat echogenic. No mass. LIVER VASCULATURE: Normal directional flow of the main portal vein and hepatic veins. GALLBLADDER: Somewhat contracted. No stones are seen. No wall thickening. No pericholecystic fluid . ULTRASOUND-DETECTED HONEYCUTT'S SIGN: Negative. INTRAHEPATIC DUCTS AND COMMON DUCT: CBD and intrahepatic ducts normal caliber. No filling defects. INFERIOR VENA CAVA: Not imaged. AORTA: Poorly seen. RIGHT KIDNEY: Normal size, 10.1 cm. . Normal echogenicity. No solid or suspicious masses. No hydron ephrosis. No calcifications. PERITONEAL AND RIGHT PLEURAL SPACE: No ascites or effusions. OTHER: No other significant findings. IMPRESSION: Fatty infiltration of the liver. Contracted gallbladder. No stones are seen. TECHNICAL DOCUMENTATION: JOB ID: [id number] [employer]- All Rights Reserved Reading location - IP/workstation name: [email or web address]
[2018-06-22 16:53] LABS: ABSOLUTE EOSINOPHILS # (AUTO) 0.1 10^3/uL (0.0-0.6); ABSOLUTE LYMPHOCYTES (AUTO) 2.1 10^3/uL (0.5-4.7); ABSOLUTE MONOCYTES (AUTO) 0.5 10^3/uL (0.1-1.4); ABSOLUTE NEUT (AUTO) 4.9 10^3/uL (1.7-8.2); BASOPHILS % (AUTO) 0.5 % (0-2); EOSINOPHILS % (AUTO) 1.3 % (0-6); HEMATOCRIT 32.6 % (36.0-47.0); HEMOGLOBIN 11.1 g/dL (12.0-15.5); LYMPHOCYTES % (AUTO) 27.5 % (13-45); MEAN CORPUSCULAR HEMOGLOBIN 29.3 pg (27.0-33.4); MEAN CORPUSCULAR HGB CONC 33.9 g/dL (32.0-36.0); MEAN CORPUSCULAR VOLUME 87 fl (80-97); PLATELET COUNT 284 10^3/uL (150-450); RED BLOOD COUNT 3.77 10^6/uL (3.72-5.28); SEGMENTED NEUTROPHILS % (AUTO) 64.7 % (42-78); TOTAL CELLS COUNTED % (AUTO) 100 %; WHITE BLOOD COUNT 7.7 10^3/uL (4.0-10.5)
[2018-06-22 17:20] LABS: ALANINE AMINOTRANSFERASE 13 U/L (9-52); ALBUMIN 4.7 g/dL (3.5-5.0); ALKALINE PHOSPHATASE 64 U/L (38-126); ANION GAP 12 (5-19); ASPARTATE AMINO TRANSFERASE 21 U/L (14-36); BILIRUBIN,DIRECT 0.2 mg/dL (0.0-0.4); BILIRUBIN,TOTAL 1.1 mg/dL (0.2-1.3); BLOOD UREA NITROGEN 14 mg/dL (7-20); CALCIUM 9.8 mg/dL (8.4-10.2); CARBON DIOXIDE 27 mmol/L (22-30); CHLORIDE 103 mmol/L (98-107); GLUCOSE 96 mg/dL (75-110); LIPASE 80.8 U/L (23-300); SODIUM 141.9 mmol/L (137-145); TOTAL PROTEIN 7.9 g/dL (6.3-8.2)
[2018-06-22] MEDS ORDERED: HYDROCODONE/ACETAMINOPHEN 5-325 MG (6 TAB/ER DISP) PO PRN (18:22)
[2018-06-22] MEDS ORDERED: ONDANSETRON ODT 4 MG TAB (6 TAB/ER DISP) PO PRN (18:33)
[2018-06-22 18:34] VITALS: BP 116/66
== END 2018-06-22 18:41 | disposition home or self-care (01) ==
LOC: ER 15:06
DX: K82.0 Obstruction of gallbladder (principal); K76.0 Fatty (change of) liver, not elsewhere classified; R10.11 Right upper quadrant pain; R11.0 Nausea; F17.200 Nicotine dependence, unspecified, uncomplicated; Z87.59 Personal history of other complications of pregnancy, childbirth and the puerperium
CPT/HCPCS: 99284; 96361; 96374; 96375; 36415; 87086; 84702; 83690; 85025; 81025; 80053; 81001; 76705; J1170; J2405; J7030

== ENCOUNTER 2018-06-29 16:29 | Emergency (ER) | payer MEDICAID ==
[2018-06-29] MEDS ORDERED: RINGERS SOLUTION,LACTATED 1,000 ML IV ONE (18:42)
[2018-06-29] MEDS ORDERED: ONDANSETRON HCL INJ/PF 4 MG/2 ML SDV IV ONE (18:42)
--- NOTE | 2018-06-29 18:49 | ER Document Report ---
ED Medical Screen (RME) - General Chief Complaint: Abdominal Pain Stated Complaint: ABDOMINAL PAIN Time Seen by Provider: 06/29/18 18:34 TRAVEL OUTSIDE OF THE [place] IN LAST 30 DAYS: No - Related Data Allergies/Adverse Reactions: No Known Allergies Allergy (Verified 06/22/18 15:07) Past Medical History - Social History Chew tobacco use (# tins/day): No Frequency of alcohol use: None Drug Abuse: None Renal/ Medical History: Denies: Hx Peritoneal Dialysis GI Medical History: Reports: Hx Irritable Bowel - Possible Psychiatric Medical History: Reports: Hx Anxiety, Hx Depression Past Surgical History: Reports: Hx Gynecologic Surgery - R ovary cyst removed by laparoscopy Physical Exam - Vital signs Vitals: Temp Pulse Resp BP Pulse Ox 97.5 F 101 H 14 120/78 98 06/29/18 16:34 06/29/18 16:34 06/29/18 16:34 06/29/18 16:34 06/29/18 16:34 Course - Re-evaluation Re-evalutation: 06/29/18 18:57 32-year-old female with persistent and worsening right-sided abdominal pain for which she has been evaluated previously underwent an ultrasound which did not demonstrate any obvious abnormality her nausea and persistent abdominal pain have intensified now she is unable to eat or drink anything. We will further workup, will obtain blood work will obtain CT imaging the abdomen and pelvis. I have seen and performed a rapid medical screening examination on this patient. This patient will require further evaluation and disposition determination by a secondary provider. - Vital Signs Vital signs: Temp Pulse Resp BP Pulse Ox 97.5 F 101 H 14 120/78 98 06/29/18 16:34 06/29/18 16:34 06/29/18 16:34 06/29/18 16:34 06/29/18 16:34
[2018-06-29 19:27] LABS: ABSOLUTE EOSINOPHILS # (AUTO) 0.1 10^3/uL (0.0-0.6); ABSOLUTE LYMPHOCYTES (AUTO) 2.5 10^3/uL (0.5-4.7); ABSOLUTE MONOCYTES (AUTO) 0.4 10^3/uL (0.1-1.4); ABSOLUTE NEUT (AUTO) 5.4 10^3/uL (1.7-8.2); BASOPHILS % (AUTO) 0.6 % (0-2); EOSINOPHILS % (AUTO) 1.2 % (0-6); HEMATOCRIT 33.4 % (36.0-47.0); HEMOGLOBIN 11.3 g/dL (12.0-15.5); LYMPHOCYTES % (AUTO) 29.7 % (13-45); MEAN CORPUSCULAR HEMOGLOBIN 28.8 pg (27.0-33.4); MEAN CORPUSCULAR HGB CONC 33.8 g/dL (32.0-36.0); MEAN CORPUSCULAR VOLUME 85 fl (80-97); MONOCYTES % (AUTO) 4.4 % (3-13); PLATELET COUNT 303 10^3/uL (150-450); RED BLOOD COUNT 3.91 10^6/uL (3.72-5.28); RED CELL DISTRIBUTION WIDTH 13.5 % (11.5-14.0); SEGMENTED NEUTROPHILS % (AUTO) 64.1 % (42-78); TOTAL CELLS COUNTED % (AUTO) 100 %; WHITE BLOOD COUNT 8.4 10^3/uL (4.0-10.5)
[2018-06-29 19:47] LABS: ALANINE AMINOTRANSFERASE 14 U/L (9-52); ALBUMIN 4.8 g/dL (3.5-5.0); ALKALINE PHOSPHATASE 71 U/L (38-126); ANION GAP 14 (5-19); ASPARTATE AMINO TRANSFERASE 21 U/L (14-36); BILIRUBIN,DIRECT 0.3 mg/dL (0.0-0.4); BILIRUBIN,TOTAL 1.1 mg/dL (0.2-1.3); BLOOD UREA NITROGEN 13 mg/dL (7-20); CARBON DIOXIDE 28 mmol/L (22-30); CHLORIDE 100 mmol/L (98-107); GLUCOSE 98 mg/dL (75-110); LIPASE 105.7 U/L (23-300); POTASSIUM 4.3 mmol/L (3.6-5.0); SODIUM 142.3 mmol/L (137-145); TOTAL PROTEIN 8.2 g/dL (6.3-8.2)
[2018-06-29 20:11] LABS: APPEARANCE,URINE CLOUDY; BILIRUBIN,URINE NEGATIVE (NEGATIVE); COLOR,URINE YELLOW; GLUCOSE, URINE NEGATIVE (NEGATIVE); KETONES,URINE NEGATIVE (NEGATIVE); LEUKOCYTE ESTERASE,URINE LARGE (NEGATIVE); NITRITE,URINE NEGATIVE (NEGATIVE); PROTEIN,URINE NEGATIVE (NEGATIVE); URINE SPECIFIC GRAVITY 1.009; UROBILINOGEN,URINE NEGATIVE mg/dL (<2.0)
[2018-06-29] MEDS ORDERED: FENTANYL CITRATE INJ/PF 100 MCG/2 ML AMPUL IV ONE (20:39)
--- NOTE | 2018-06-29 21:34 | RADIOLOGY REPORT (SQ) ---
EXAM DESCRIPTION: CT ABDOMEN PELVIS WITH IV CONTRAST COMPLETED DATE/TME: 06/29/2018 18:41 CLINICAL HISTORY: 32 years Female right upper and lower quadrant pain COMPARISON: None. TECHNIQUE: Contiguous axial images obtained through the abdomen and pelvis following IV contrast. Reformatted images obtained. This exam was performed according to our department optimization program which includes automated exposure control, adjustment of the mA and/or kv according to patient size and/or use of iterative reconstruction technique. FINDINGS: The liver appears unremarkable. The spleen and pancreas appear unremarkable. No adrenal masses. The kidneys appear unremarkable. No hydronephrosis. The gallbladder is visualized. No aneurysmal dilatation of the aorta. No bowel obstruction. The appendix is unremarkable. No free fluid. There are ovarian cysts bilaterally. Cyst on the left measures 3.7 cm. Cyst on the right measure 2.2 and 2.9 cm respectively. These are almost entirely benign and no follow-up is recommended. IMPRESSION: No evidence of appendicitis Bilateral ovarian cysts as delineated above. These are almost certainly benign and no follow-up is recommended.
[2018-06-29] MEDS ORDERED: CEFTRIAXONE INJ 1000 MG VIAL IV ONE (22:35)
[2018-06-29] MEDS ORDERED: LORAZEPAM INJ 2 MG/1 ML VIAL IV ONE (23:25)
[2018-06-29] MEDS ORDERED: NORMAL SALINE 1000 ML 1,000 ML IV ONE (23:26)
[2018-06-29] MEDS ORDERED: CEFTRIAXONE 1 GM/D5W RTU 1 GM/50 ML RTUPB IV ONE (23:29)
--- NOTE | 2018-06-29 23:56 | ER Document Report ---
ED General <VIRI ZAFAR - Last Filed: 06/30/18 10:18> - General TRAVEL OUTSIDE OF THE [place] IN LAST 30 DAYS: No <ROSEMARY DONIS - Last Filed: 07/02/18 01:40> - General Chief Complaint: Abdominal Pain Stated Complaint: ABDOMINAL PAIN Time Seen by Provider: 06/29/18 18:34 Notes: Patient is a pleasant 32-year-old female presents with complaint of abdominal pain is right-sided. She also has vomiting. Says the pain occurs every time she eats. She was seen here approximately a week ago. At that time workup was negative. She states she is continued to vomit and have pain whenever she eats and therefore is return to the ER today. No dysuria. No fevers. No diarrhea. No blood in her stools. No other complaints at this time. She still has her gallbladder. She did just recently is having a miscarriage. She says her vaginal bleeding has stopped. (ROSEMARY DONIS) - Related Data Allergies/Adverse Reactions: No Known Allergies Allergy (Verified 06/22/18 15:07) Past Medical History - Social History Smoking Status: Current Some Day Smoker Chew tobacco use (# tins/day): No Frequency of alcohol use: None Drug Abuse: None Family History: Reviewed & Not Pertinent Patient has suicidal ideation: No Patient has homicidal ideation: No Renal/ Medical History: Denies: Hx Peritoneal Dialysis GI Medical History: Reports: Hx Irritable Bowel - Possible Psychiatric Medical History: Reports: Hx Anxiety, Hx Depression Past Surgical History: Reports: Hx Gynecologic Surgery - R ovary cyst removed by laparoscopy <ROSEMARY DONIS - Last Filed: 07/02/18 01:40> Review of Systems <VIRI ZAFAR - Last Filed: 06/30/18 10:18> <ROSEMARY DONIS - Last Filed: 07/02/18 01:40> - Review of Systems Notes: My Normal Review Basic REVIEW OF SYSTEMS: CONSTITUTIONAL : Denies fever, chills, or sweats. Denies recent illness. EENT: Denies eye, ear, throat, or mouth pain or symptoms. Denies nasal or sinus congestion. RESPIRATORY: Denies cough, cold, or chest congestion. Denies shortness of breath, difficulty breathing, or wheezing. GASTROINTESTINAL: Abdominal pain and vomiting. GENITOURINARY: Denies difficulty urinating, painful urination, burning, frequency, or blood in urine. FEMALE GENITOURINARY: Denies vaginal bleeding, abnormal or irregular periods. LMP: Recent miscarriage MUSCULOSKELETAL: Denies neck or back pain or joint pain or swelling. NEUROLOGICAL: Denies altered mental status or loss of consciousness. ALL OTHER SYSTEMS REVIEWED AND NEGATIVE. (ROSEMARY DONIS) Physical Exam <VIRI ZAFAR - Last Filed: 06/30/18 10:18> <ROSEMARY DONIS - Last Filed: 07/02/18 01:40> - Vital signs Vitals: Temp Pulse Resp BP Pulse Ox 97.5 F 101 H 14 120/78 98 06/29/18 16:34 06/29/18 16:34 06/29/18 16:34 06/29/18 16:34 06/29/18 16:34 - Notes Notes: General Appearance: Well nourished, alert, cooperative, no acute distress, mild obvious discomfort. Vitals: reviewed, See vital signs table. Head: no swelling or tenderness to the head Eyes: PERRL, EOMI, Conjuctiva clear Mouth: No decreasd moisture Lungs: No wheezing, No rales, No rhonci, No accessory muscle use, good air exchange bilaterally. Heart: Normal rate, Regular rythm, No murmur, no rub Abdomen: Normal BS, soft, No rigidity, some pain to palpation of her right upper quadrant and right middle aspect of the abdomen. Remainder of abdomen is nontender., No guarding, no rebound, no abdominal masses, no organomegaly Extremities: strength 5/5 in all extremities, good pulses in all extremities, no swelling or tenderness in the extremities, no edema. Skin: warm, dry, appropriate color, no rash Neuro: speech clear, oriented x 3, normal affect, responds appropriately to questions. (ROSEMARY DONIS) Course - Laboratory Result Diagrams: 06/29/18 19:12 06/29/18 19:12 <VIRI ZAFAR - Last Filed: 06/30/18 10:18> - Laboratory Result Diagrams: 06/29/18 19:12 06/29/18 19:12 <ROSEMARY DONIS - Last Filed: 07/02/18 01:40> - Re-evaluation Re-evalutation: 06/30/18 10:18 I personally evaluated this patient. Her abdomen was tender in the right upper quadrant with no peritoneal signs. Patient's HIDA scan shows no ductal dilation or blockage. She did have reproducible symptoms with HIDA. Patient symptoms likely related to biliary colic. I advised her to follow with general surgery as directed by Dr. Donis for cholecystectomy. She is not requiring emergent cholecystectomy as there is no acute cholecystitis or blockage. Patient is tolerating oral intake. She is asking for medication to "knock me out so I cannot sleep". I offered her melatonin which she is refusing. Patient states the Zullinger she was prescribed at her last visit made her combative so she does not want to take that, she is requesting pain medication. I will give her a prescription for Toradol since she is not tolerating opiate medications. She will be discharged home in stable condition and advised to call general surgery today. (VIRI ZAFAR) 06/29/18 23:56 Spoke with patient at length. Her urine shows some evidence of infection I think is probably most likely contaminant. She does not have any urinary symptoms. She however does have large leukocyte esterase will give her a dose of Rocephin will await for further testing. I think is more likely that her pain is related to dysfunctional gallbladder being that she has right-sided abdominal pain every time she eats and she vomits whenever she gets this pain. Her gallbladder workup up until now has been negative. I will order HIDA scan. I did call and speak with the hvac technician who called the nuclear med tech who said it would be around 6 AM when we get the HIDA scan. Patient is to remain n.p.o. and no pain medicine after midnight. I explained the plan to the patient and she is agreeable to it. 06/30/18 04:05 Patient's beta hCG is downtrending appropriately as expected following a miscarriage. (ROSEMARY DONIS) - Vital Signs Vital signs: Temp Pulse Resp BP Pulse Ox 98.2 F 75 15 102/67 99 06/30/18 03:53 06/30/18 10:49 06/30/18 10:49 06/30/18 10:49 06/30/18 10:49 - Laboratory Laboratory results interpreted by me: 06/29/18 06/29/18 06/29/18 19:12 19:12 19:12 Hgb 11.3 L Hct 33.4 L Beta HCG, Quant 66.27 H Urine Blood SMALL H Ur Leukocyte Esterase LARGE H Discharge <VIRI ZAFAR Martin - Last Filed: 06/30/18 10:18> <ROSEMARY DONIS - Last Filed: 07/02/18 01:40> - Discharge Clinical Impression: Pyuria Abdominal pain Qualifiers: Abdominal location: right upper quadrant Qualified Code(s): R10.11 - Right upper quadrant pain Disposition: HOME, SELF-CARE Additional Instructions: Please follow up with the surgery clinic for reevaluation. The phone number for the surgery clinic is under Dr. Ross on your discharge instructions. Your urine showed some evidence of a UTI., I am not convinced this is causing your pain, but we will place you on an antibiotic to treat you in case it is contributing to your symptoms. I have prescribed Zofran to take for your nausea. Please avoid all spicy foods, acidic foods, and any foods that have any fat in them such as meats or fried foods. Return tot ER if you have fevers, worsening pain, or intractable vomiting. Prescriptions: Ketorolac Tromethamine [Toradol 10 mg Tablet] 10 mg PO Q6HP PRN #20 tablet PRN Reason: Cephalexin Monohydrate [Keflex 500 mg Capsule] 500 mg PO BID #12 capsule Ondansetron [Zofran Odt 4 mg Tablet] 1 tab PO Q4H PRN #15 tab.rapdis PRN Reason: For Nausea/Vomiting Forms: Return to Work Referrals: CHENG ROSS MD [ACTIVE STAFF] - Follow up in 3-5 days (call the office to make a folow up appointment.)
--- NOTE | 2018-06-30 09:51 | RADIOLOGY REPORT (SQ) ---
EXAM DESCRIPTION: NM HIDA SCAN WITH CCK COMPLETED DATE/TIME: 06/30/2018 9:38 am REASON FOR STUDY: RUQ pain with eating. Please give CCK COMPARISON: Abdominal ultrasound 06/22/2018 CT abdomen pelvis 06/29/2018 RADIONUCLIDE AND DOSE: DOSAGE RADIONUCLIDE: 5.4 millicuries Tc99m Mebrofenin. DOSAGE CCK: 1.8 micrograms. DOSAGE MORPHINE: Not required. The route of agent administration: Intravenous TECHNIQUE: Serial imaging right upper quadrant up to 60 minutes following injection of radionuclide. CCK injected after gallbladder visualized. LIMITATIONS: None. FINDINGS: LIVER: Normal visualization which clears by 60 minutes INTRAHEPATIC BILE DUCTS: Normal visualization COMMON BILE DUCT: Normal visualization GALLBLADDER: Normal visualization. Calculated ejection fraction of 56%. Normal range is greater th an 35%. PHYSICAL RESPONSE: Patients presenting complaint was reproduced. OTHER: No other significant finding. IMPRESSION: No scintigraphic evidence of cystic duct or common duct obstruction. However, IV CCK re produced the patient's symptoms of right upper quadrant pain and nausea TECHNICAL DOCUMENTATION: JOB ID: [id number] [email or web address]- All Rights Reserved Reading location - IP/workstation name: [email or web address]
[2018-06-30] MEDS ORDERED: ONDANSETRON HCL INJ/PF 4 MG/2 ML SDV IV ONE (10:07)
[2018-06-30] MEDS ORDERED: MORPHINE SULFATE 10 MG/ML INJ IV ONE (10:07)
[2018-06-30 10:50] VITALS: BP 102/67
== END 2018-06-30 10:59 | disposition home or self-care (01) ==
LOC: ER 16:29
DX: N39.0 Urinary tract infection, site not specified (principal); R10.11 Right upper quadrant pain; R11.10 Vomiting, unspecified; F17.200 Nicotine dependence, unspecified, uncomplicated
CPT/HCPCS: 36415; 87086; 84702; 83690; 85025; 80053; 81001; 78227; 74177; J2805; A9537; J3010; J2270; J2060; J0696; J2405 ×2; J7030; J7120; Q9969

== ENCOUNTER 2018-07-18 11:35 | Emergency (ER) | payer MEDICAID ==
--- NOTE | 2018-07-18 12:02 | ER Document Report ---
ED Medical Screen (RME) - General Chief Complaint: Abdominal Pain Stated Complaint: NAUSEA,RIGHT SIDE PAIN Time Seen by Provider: 07/18/18 11:56 Mode of Arrival: Ambulatory Information source: Patient, [facility]LY [facility] Records Notes: 32-year-old female with recurrent upper abdominal pain presents with complaint of worsening abdominal pain. This is the patient's third visit in approximately 2 months for similar symptoms. Patient recently had a HIDA scan. She states that she has tried to follow-up with surgery but was told that they do not take her insurance. Patient is unable to live with the current pain. I have greeted and performed a rapid initial assessment of this patient. A comprehensive ED assessment and evaluation of the patient, analysis of test results and completion of medical decision making process we will be contacted by additional ED providers. PHYSICAL EXAMINATION: Vital signs reviewed-within normal limits GENERAL: no acute distress. LUNGS: No respiratory distress Musculoskeletal: Normal range of motion NEUROLOGICAL: Normal speech, normal gait. PSYCH: Normal mood, normal affect. SKIN: Warm, Dry, normal turgor, no rashes or lesions noted. TRAVEL OUTSIDE OF THE [place] IN LAST 30 DAYS: No - HPI Onset: Other Onset/Duration: Worse Quality of pain: Stabbing Severity: Moderate Associated Symptoms: Abdominal pain, Dizzy/lightheaded, Nausea. denies: Fever Exacerbated by: Food Relieved by: Denies Similar symptoms previously: Yes Recently seen / treated by doctor: Yes - Related Data Smoking: Non-smoker Frequency of alcohol use: None Drug Abuse: None Allergies/Adverse Reactions: No Known Allergies Allergy (Verified 06/22/18 15:07) Past Medical History Renal/ Medical History: Denies: Hx Peritoneal Dialysis GI Medical History: Reports: Hx Irritable Bowel - Possible Psychiatric Medical History: Reports: Hx Anxiety, Hx Depression Past Surgical History: Reports: Hx Gynecologic Surgery - R ovary cyst removed by laparoscopy Physical Exam - Vital signs Vitals: Temp Pulse Resp BP Pulse Ox 98.4 F 97 18 117/71 96 07/18/18 11:39 07/18/18 11:39 07/18/18 11:39 07/18/18 11:39 07/18/18 11:39 Course - Vital Signs Vital signs: Temp Pulse Resp BP Pulse Ox 98.4 F 97 18 117/71 96 07/18/18 11:39 07/18/18 11:39 07/18/18 11:39 07/18/18 11:39 07/18/18 11:39
[2018-07-18 12:43] LABS: ABSOLUTE EOSINOPHILS # (AUTO) 0.1 10^3/uL (0.0-0.6); ABSOLUTE LYMPHOCYTES (AUTO) 2.2 10^3/uL (0.5-4.7); ABSOLUTE MONOCYTES (AUTO) 0.4 10^3/uL (0.1-1.4); ABSOLUTE NEUT (AUTO) 4.3 10^3/uL (1.7-8.2); BASOPHILS % (AUTO) 0.7 % (0-2); EOSINOPHILS % (AUTO) 1.2 % (0-6); HEMATOCRIT 32.2 % (36.0-47.0); HEMOGLOBIN 10.8 g/dL (12.0-15.5); LYMPHOCYTES % (AUTO) 31.7 % (13-45); MEAN CORPUSCULAR HEMOGLOBIN 27.5 pg (27.0-33.4); MEAN CORPUSCULAR HGB CONC 33.6 g/dL (32.0-36.0); MEAN CORPUSCULAR VOLUME 82 fl (80-97); MONOCYTES % (AUTO) 6.1 % (3-13); PLATELET COUNT 314 10^3/uL (150-450); RED BLOOD COUNT 3.92 10^6/uL (3.72-5.28); RED CELL DISTRIBUTION WIDTH 13.8 % (11.5-14.0); SEGMENTED NEUTROPHILS % (AUTO) 60.3 % (42-78); TOTAL CELLS COUNTED % (AUTO) 100 %; WHITE BLOOD COUNT 7.1 10^3/uL (4.0-10.5)
[2018-07-18 12:54] LABS: APPEARANCE,URINE CLOUDY; BILIRUBIN,URINE NEGATIVE (NEGATIVE); COLOR,URINE YELLOW; GLUCOSE, URINE NEGATIVE (NEGATIVE); KETONES,URINE NEGATIVE (NEGATIVE); LEUKOCYTE ESTERASE,URINE MODERATE (NEGATIVE); NITRITE,URINE NEGATIVE (NEGATIVE); PROTEIN,URINE NEGATIVE (NEGATIVE); URINE SPECIFIC GRAVITY 1.021; UROBILINOGEN,URINE NEGATIVE mg/dL (<2.0)
[2018-07-18 13:02] LABS: ALANINE AMINOTRANSFERASE 20 U/L (9-52); ALBUMIN 4.5 g/dL (3.5-5.0); ALKALINE PHOSPHATASE 60 U/L (38-126); ANION GAP 7 (5-19); ASPARTATE AMINO TRANSFERASE 23 U/L (14-36); BILIRUBIN,DIRECT 0.1 mg/dL (0.0-0.4); BILIRUBIN,TOTAL 0.6 mg/dL (0.2-1.3); BLOOD UREA NITROGEN 11 mg/dL (7-20); CALCIUM 9.7 mg/dL (8.4-10.2); CARBON DIOXIDE 28 mmol/L (22-30); CHLORIDE 104 mmol/L (98-107); GLUCOSE 96 mg/dL (75-110); POTASSIUM 4.5 mmol/L (3.6-5.0); SODIUM 139.4 mmol/L (137-145); TOTAL PROTEIN 7.3 g/dL (6.3-8.2)
[2018-07-18] MEDS ORDERED: MORPHINE SULFATE 10 MG/ML INJ IV ONE (14:37)
[2018-07-18] MEDS ORDERED: ONDANSETRON HCL INJ/PF 4 MG/2 ML SDV IV ONE (14:37)
--- NOTE | 2018-07-18 16:01 | ER Document Report ---
ED GI/ - General Chief Complaint: Abdominal Pain Stated Complaint: NAUSEA,RIGHT SIDE PAIN Time Seen by Provider: 07/18/18 11:56 Mode of Arrival: Ambulatory Notes: Patient is a 32-year-old female who presents with chief complaint of right upper quadrant pain over the last 2 days. She states that since yesterday she has been vomiting. She reports a total vomiting of 4-6 times. She reports that she is supposed to have her gallbladder removed by the surgical clinic however due to insurance issues she has been unable to follow-up with them. Patient has been seen here multiple times for similar episodes. Patient currently denies any fever or diarrhea. TRAVEL OUTSIDE OF THE [place] IN LAST 30 DAYS: No - Related Data Allergies/Adverse Reactions: No Known Allergies Allergy (Verified 06/22/18 15:07) Past Medical History - General Information source: Patient, [facility] Records - Social History Smoking Status: Never Smoker Chew tobacco use (# tins/day): No Frequency of alcohol use: None Drug Abuse: None Family History: Reviewed & Not Pertinent Patient has suicidal ideation: No Patient has homicidal ideation: No Renal/ Medical History: Denies: Hx Peritoneal Dialysis GI Medical History: Reports: Hx Irritable Bowel - Possible Psychiatric Medical History: Reports: Hx Anxiety, Hx Depression Past Surgical History: Reports: Hx Gynecologic Surgery - R ovary cyst removed by laparoscopy Review of Systems - Review of Systems Gastrointestinal: Abdominal pain, Nausea, Vomiting. denies: Diarrhea, Constipation -: Yes All other systems reviewed and negative Physical Exam - Vital signs Vitals: Temp Pulse Resp BP Pulse Ox 98.4 F 97 18 117/71 96 07/18/18 11:39 07/18/18 11:39 07/18/18 11:39 07/18/18 11:39 07/18/18 11:39 - Notes Notes: PHYSICAL EXAMINATION: GENERAL: Well-appearing, well-nourished and in no acute distress. HEAD: Atraumatic, normocephalic. EYES: Pupils equal round and reactive to light, extraocular movements intact, conjunctiva are normal. ENT: Nares patent, oropharynx clear without exudates. Moist mucous membranes. NECK: Normal range of motion, supple without lymphadenopathy LUNGS: Breath sounds clear to auscultation bilaterally and equal. No wheezes rales or rhonchi. HEART: Regular rate and rhythm without murmurs ABDOMEN: Soft, mildly tender, nondistended abdomen. No Ruiz sign. No guarding, no rebound. No masses appreciated. Female : No CVA tenderness. Musculoskeletal: Normal range of motion, no pitting or edema. No cyanosis. NEUROLOGICAL: Cranial nerves grossly intact. Normal speech, normal gait. Normal sensory, motor exams PSYCH: Normal mood, normal affect. SKIN: Warm, Dry, normal turgor, no rashes or lesions noted. Course - Re-evaluation Re-evalutation: Patient's physical examination is unremarkable. Initial vital signs are within normal limits. CBC, CMP and urinalysis are all unremarkable. Right upper quadrant ultrasound of the gallbladder is also unremarkable. Patient was given Zofran and morphine for her pain and nausea. Patient has not vomited since arrival to the emergency department. I went back to the room to reevaluate the patient and discussed the fact that all of her labs are normal and her gallbladder ultrasound was unremarkable. Patient is unhappy with this as she states that she wanted to get her gallbladder taken out today. I explained to the patient that unfortunately at this time this is not an emergency situation so that she will need to follow-up outpatient. I did give her strict ED return precautions and I provided her with pain and nausea medications to take home as patient states that she cannot afford to have a prescription filled. - Vital Signs Vital signs: Temp Pulse Resp BP Pulse Ox 98.4 F 97 18 117/71 96 07/18/18 11:39 07/18/18 11:39 07/18/18 11:39 07/18/18 11:39 07/18/18 11:39 - Laboratory Result Diagrams: 07/18/18 12:18 07/18/18 12:18 Laboratory results interpreted by me: 07/18/18 07/18/18 12:18 12:18 Hgb 10.8 L Hct 32.2 L Urine Blood SMALL H Ur Leukocyte Esterase MODERATE H Discharge - Discharge Clinical Impression: Right upper quadrant abdominal pain Condition: Stable Disposition: HOME, SELF-CARE Additional Instructions: Gallbladder Disease Your evaluation shows evidence of gallbladder disease. The gallbladder is a pouch under the liver which stores bile. Stones, infection, or irritation of the gallbladder cause attacks of pain. Certain foods -- fats in particular -- may provoke attacks. The usual treatment for gallbladder disease is surgical removal of the gallbladder -- called a cholecystectomy. You will be referred to a physician qualified to advise you on the best treatment for your problem. Hospitalization is not necessary. Take clear liquids only until you are painfree. After that, you should stay on a low-fat diet, with frequent SMALL meals. Call the doctor or return at once if you develop severe pain, repeated vomiting, fever, or jaundice (a yellow color in the skin and whites of the eyes) . Your workup today was unremarkable. Your lab work was normal as well as your gallbladder ultrasound. Unfortunately this is not enough to get you admitted to the hospital for a cholecystectomy. Please continue your plans to follow-up with the surgical clinic for outpatient evaluation. Take the pain and nausea medications as prescribed. Return to the emergency department for any of the above warning signs.
--- NOTE | 2018-07-18 16:26 | RADIOLOGY REPORT (SQ) ---
EXAM DESCRIPTION: U/S ABDOMEN LIMITED W/O DOP COMPLETED DATE/TIME: 07/18/2018 3:57 pm REASON FOR STUDY: RUQ pain eval Gallbladder COMPARISON: CT abdomen and pelvis 06/29/2018. Right upper quadrant ultrasound 06/22/2018. TECHNIQUE: Grayscale images acquired of the right upper quadrant and recorded on PACS. Additional se lected color Doppler and spectral images recorded. LIMITATIONS: Study limited due to acoustical interference from fat or from air in the bowel. FINDINGS: PANCREAS: The pancreas is partially obscured by overlying bowel gas. The visualized pancr eas in the midline is unremarkable. LIVER: The liver measures 15.2 cm. There is increased echogenicity of the liver parenchyma, suggesti ve of fatty infiltration. LIVER VASCULATURE: Normal directional flow of the main portal vein. GALLBLADDER: The gallbladder is contracted. No shadowing stones. Normal wall thickness. No perichol ecystic fluid. ULTRASOUND-DETECTED HONEYCUTT'S SIGN: Negative. INTRAHEPATIC DUCTS AND COMMON DUCT: CBD and intrahepatic ducts normal caliber. INFERIOR VENA CAVA: Patent. AORTA: No aneurysm at the visualized segments. RIGHT KIDNEY: The right kidney measures 12 cm in length. Normal echogenicity. No hydronephrosis. No calcifications. PERITONEAL CAVITY AND RIGHT PLEURAL SPACE: No ascites or effusions. IMPRESSION: 1. Contracted gallbladder. No cholelithiasis or biliary ductal dilation. 2. Fatty infiltration of the liver. TECHNICAL DOCUMENTATION: JOB ID: [id number] [employer]- All Rights Reserved Reading location - IP/workstation name: [email or web address]
[2018-07-18] MEDS ORDERED: HYDROCODONE/ACETAMINOPHEN 5-325 MG (6 TAB/ER DISP) PO PRN (16:58)
[2018-07-18] MEDS ORDERED: ONDANSETRON ODT 4 MG TAB (6 TAB/ER DISP) PO PRN (16:58)
[2018-07-18 17:50] VITALS: BP 114/75
== END 2018-07-18 17:33 | disposition home or self-care (01) ==
LOC: ER 11:35
DX: R10.11 Right upper quadrant pain (principal); R11.2 Nausea with vomiting, unspecified
CPT/HCPCS: 99284; 96374; 96375; 36415; 85025; 80053; 81001; 76705; J2270; J2405

== ENCOUNTER 2018-09-21 08:01 | Emergency (ER) | payer SELFPAY ==
[2018-09-21 08:07] VITALS: BP 132/86
--- NOTE | 2018-09-21 08:55 | ER Document Report ---
ED General - General Chief Complaint: Ankle Swelling Stated Complaint: COUGH/SWOLLEN ANKLES Time Seen by Provider: 09/21/18 08:36 Notes: 32-year-old female to the ED with complaints to the ED with complaints of bilateral ankle swelling for the last few days. Pt denies any injury and or pain to the ankles. Pt claims intermittent dizziness, light-headedness and nausea. Pt also claims a cough of thick white sputum. Pt denies any medication s and or treatments prior to arrival. Pt is AOx4 and able to speak in full sentences. Patient complains of various aches and pains occasional dizziness denies extremity numbness tingling or weakness. Denies any chest pain. She stated she googled her symptoms and thought she better come to the ER. She has been here 5 years but has not established a primary care doctor. Denies any nausea or vomiting. Denies diaphoresis. Denies blurred vision. Denies extremity numbness tingling or weakness but states she does get dizzy from time to time. Especially upon standing. Has had a little bit of cough and nasal congestion the last several days. TRAVEL OUTSIDE OF THE [place] IN LAST 30 DAYS: No - Related Data Allergies/Adverse Reactions: No Known Allergies Allergy (Verified 06/22/18 15:07) Past Medical History - Social History Smoking Status: Current Every Day Smoker Family History: Reviewed & Not Pertinent Patient has suicidal ideation: No Patient has homicidal ideation: No Renal/ Medical History: Denies: Hx Peritoneal Dialysis GI Medical History: Reports: Hx Irritable Bowel - Possible Psychiatric Medical History: Reports: Hx Anxiety, Hx Depression Past Surgical History: Reports: Hx Gynecologic Surgery - R ovary cyst removed by laparoscopy Review of Systems - Review of Systems Constitutional: Recent illness - URI. denies: Chills, Fever EENT: Nose congestion. denies: Difficulty swallowing Cardiovascular: Edema. denies: Chest pain, Heart racing, Orthopnea Respiratory: Cough, Sputum. denies: Hurts to breathe, Hemoptysis, Short of breath, Wheezing Gastrointestinal: denies: Nausea, Vomiting, Constipation Genitourinary: denies: Dysuria, Hematuria Neurological/Psychological: denies: Headaches -: Yes All other systems reviewed and negative Physical Exam - Vital signs Vitals: Temp Pulse Resp BP Pulse Ox 97.8 F 86 18 132/86 H 100 09/21/18 08:04 09/21/18 08:04 09/21/18 08:04 09/21/18 08:04 09/21/18 08:04 - Notes Notes: GENERAL_APPEARANCE: well_nourished, alert, cooperative, no_acute_distress, no_obvious_discomfort. VITALS: reviewed, see vital signs table. HEAD: no_swelling\tenderness on the head. EYES: PERRL, EOMI, conjunctiva_clear. NOSE: no_nasal_discharge. MOUTH: (-)decreased moisture. THROAT: no_tonsilar_inflammation, no_airway_obstruction. no_lymphadenopathy NECK: supple, no_neck_tenderness, (-)thyromegaly. BACK: no_back_tenderness. CHEST_WALL: no_chest_tenderness. LUNGS: no_wheezing, no_rales, no_rhonchi, (-)accessory muscle use, good air exchange bilateral. HEART: normal_rate, normal_rhythm, normal_S1, normal_S2, (-)S3, (-)S4, no_murmur, no_rub. ABDOMEN: normal_BS, soft, no_abd_tenderness, (-)guarding, (-)rebound, no_organomegaly, no_abd_masses. EXTREMITIES: strength 5/5 in all_extremities, good pulses in all_extremities, no_swelling\tenderness in the extremities, 1 plus_edema. SKIN: warm, dry, good_color, no_rash. MENTAL_STATUS: speech_clear, oriented_X_3, normal_affect, responds_appropriately to questions. NEURO: Neg Motor or Sensory Deficits on exam, CN 2-12 intact, DTR 2+ symmetric x 4, No cerbellar signs Course - Re-evaluation Re-evalutation: 09/21/18 08:53 32-year-old female presents to the ER with multiple complaints. I spoke with the patient at length. She does not have a family doctor anybody to see what her some general blood work and urine. The patient has no chest pain or shortness of breath. She is on her feet a lot and does get what appears to be dependent edema. He does complain of dizziness and lightheadedness. I spoke with her about this and ordered some labs however she does not have any kind of insurance. And really does not want to generate a large bill. I spoke with her that we should probably investigate these complaints I am not sure if anything is necessarily emergent but I cannot tell without a full diagnostic workup. The patient opted to leave before any lab work was done AMA I spoke with her about the risks and benefits. We spoke about some of the dangers she may encounter if there is underlying disorders. We cannot screen for these unless we do a laboratory workup. - Vital Signs Vital signs: Temp Pulse Resp BP Pulse Ox 97.8 F 86 18 132/86 H 100 09/21/18 08:04 09/21/18 08:04 09/21/18 08:04 09/21/18 08:04 09/21/18 08:04 Discharge - Discharge Clinical Impression: Dependent edema, Cough Condition: Good Disposition: AGAINST MEDICAL ADVICE Instructions: Dependent Edema ([facility]), Edema, Peripheral ([facility])
== END 2018-09-21 08:49 | disposition left against medical advice (07) ==
LOC: ER 08:01
DX: R60.9 Edema, unspecified (principal); R05 Cough; R42 Dizziness and giddiness; F17.200 Nicotine dependence, unspecified, uncomplicated
CPT/HCPCS: 99283

== ENCOUNTER 2018-09-21 17:01 | Emergency (ER) | payer SELFPAY ==
[2018-09-21] MEDS ORDERED: LORAZEPAM 1 MG TABLET PO ONE (19:20)
--- NOTE | 2018-09-21 19:25 | ER Document Report ---
ED Medical Screen (RME) - General Chief Complaint: Dizziness Stated Complaint: NAUSEA,DIZZINESS Time Seen by Provider: 09/21/18 19:16 Mode of Arrival: Ambulatory Information source: Patient Notes: 32-year-old female presents for the second time today with complaint of chest tightness and anxiety. Patient states that she recently started using meth amphetamine. Her last use was yesterday. I have greeted and performed a rapid initial assessment of this patient. A comprehensive ED assessment and evaluation of the patient, analysis of test results and completion of medical decision making process we will be contacted by additional ED providers. PHYSICAL EXAMINATION: Vital signs reviewed GENERAL: Anxious LUNGS: Expiratory wheezing Musculoskeletal: Normal range of motion NEUROLOGICAL: Normal speech, normal gait. PSYCH: Anxious, pressured speech SKIN: Warm, Dry, normal turgor, no rashes or lesions noted. TRAVEL OUTSIDE OF THE [place] IN LAST 30 DAYS: No - HPI Onset: Yesterday Quality of pain: Other Severity: Mild - Chest tightness Associated Symptoms: Cough (nonproductive) Exacerbated by: Denies Relieved by: Denies Similar symptoms previously: Yes Recently seen / treated by doctor: Yes - Related Data Smoking: Cigarettes Frequency of alcohol use: History of alcoholism in remission Drug Abuse: Methamphetamine Allergies/Adverse Reactions: No Known Allergies Allergy (Verified 06/22/18 15:07) Past Medical History - Social History Chew tobacco use (# tins/day): No Frequency of alcohol use: Heavy Drug Abuse: Marijuana, Methamphetamine Renal/ Medical History: Denies: Hx Peritoneal Dialysis GI Medical History: Reports: Hx Irritable Bowel - Possible Psychiatric Medical History: Reports: Hx Anxiety, Hx Depression Past Surgical History: Reports: Hx Gynecologic Surgery - R ovary cyst removed by laparoscopy Physical Exam - Vital signs Vitals: Temp Pulse Resp BP Pulse Ox 98.0 F 92 16 136/83 H 100 09/21/18 17:12 09/21/18 17:12 09/21/18 17:12 09/21/18 17:12 09/21/18 17:12 Course - Vital Signs Vital signs: Temp Pulse Resp BP Pulse Ox 98.0 F 92 16 136/83 H 100 09/21/18 17:12 09/21/18 17:12 09/21/18 17:12 09/21/18 17:12 09/21/18 17:12
[2018-09-21] MEDS ORDERED: LORAZEPAM INJ 2 MG/1 ML VIAL IM ONE (19:56)
--- NOTE | 2018-09-21 20:08 | RADIOLOGY REPORT (SQ) ---
EXAM DESCRIPTION: XR CHEST 2 VIEWS COMPLETED DATE/TME: 09/21/2018 19:22 CLINICAL HISTORY: 32 years, Female, cough wheezing Findings: Heart is not enlarged. No pneumothorax. No consolidation. No pleural effusion. IMPRESSION: No acute disease.
[2018-09-21 21:15] LABS: APPEARANCE,URINE CLOUDY; BILIRUBIN,URINE NEGATIVE (NEGATIVE); COLOR,URINE AMBER; GLUCOSE, URINE NEGATIVE (NEGATIVE); KETONES,URINE 80 mg/dL (NEGATIVE); LEUKOCYTE ESTERASE,URINE SMALL (NEGATIVE); NITRITE,URINE POSITIVE (NEGATIVE); PROTEIN,URINE 30 mg/dL (NEGATIVE); URINE SPECIFIC GRAVITY 1.017
[2018-09-21 21:21] LABS: ABSOLUTE BASOPHILS # (AUTO) 0.1 10^3/uL (0.0-0.2); ABSOLUTE EOSINOPHILS # (AUTO) 0.1 10^3/uL (0.0-0.6); ABSOLUTE LYMPHOCYTES (AUTO) 2.2 10^3/uL (0.5-4.7); ABSOLUTE MONOCYTES (AUTO) 0.5 10^3/uL (0.1-1.4); ABSOLUTE NEUT (AUTO) 6.7 10^3/uL (1.7-8.2); BASOPHILS % (AUTO) 0.5 % (0-2); HEMATOCRIT 34.4 % (36.0-47.0); HEMOGLOBIN 11.3 g/dL (12.0-15.5); LYMPHOCYTES % (AUTO) 23.4 % (13-45); MEAN CORPUSCULAR HEMOGLOBIN 24.1 pg (27.0-33.4); MEAN CORPUSCULAR HGB CONC 32.9 g/dL (32.0-36.0); MEAN CORPUSCULAR VOLUME 74 fl (80-97); MONOCYTES % (AUTO) 5.6 % (3-13); PLATELET COUNT 402 10^3/uL (150-450); RED BLOOD COUNT 4.69 10^6/uL (3.72-5.28); RED CELL DISTRIBUTION WIDTH 16.7 % (11.5-14.0); SEGMENTED NEUTROPHILS % (AUTO) 69.5 % (42-78); TOTAL CELLS COUNTED % (AUTO) 100 %; WHITE BLOOD COUNT 9.6 10^3/uL (4.0-10.5)
[2018-09-21 21:28] LABS: URINE BARBITURATES SCREEN NEGATIVE; URINE BENZODIAZEPINES SCREEN UNCONFIRMED POSITIVE; URINE COCAINE SCREEN NEGATIVE; URINE MARIJUANA (THC) SCREEN UNCONFIRMED POSITIVE; URINE METHADONE SCREEN NEGATIVE; URINE PHENCYCLIDINE SCREEN NEGATIVE
[2018-09-21 21:34] LABS: ALANINE AMINOTRANSFERASE 112 U/L (9-52); ALBUMIN 4.5 g/dL (3.5-5.0); ALKALINE PHOSPHATASE 89 U/L (38-126); ANION GAP 15 (5-19); ASPARTATE AMINO TRANSFERASE 86 U/L (14-36); BILIRUBIN,DIRECT 0.2 mg/dL (0.0-0.4); BILIRUBIN,TOTAL 0.8 mg/dL (0.2-1.3); BLOOD UREA NITROGEN 7 mg/dL (7-20); CARBON DIOXIDE 22 mmol/L (22-30); CHLORIDE 104 mmol/L (98-107); GLUCOSE 112 mg/dL (75-110); POTASSIUM 3.8 mmol/L (3.6-5.0); SODIUM 140.8 mmol/L (137-145); TOTAL PROTEIN 7.6 g/dL (6.3-8.2)
[2018-09-21 21:35] LABS: ACETAMINOPHEN < 10 ug/mL (10-30); ALCOHOL < 10 mg/dL (NONE DETECTED); SALICYLATE < 1.0 mg/dL (2.0-20.0)
[2018-09-22] MEDS ORDERED: CEFTRIAXONE INJ 1000 MG VIAL IV ONE (02:13)
--- NOTE | 2018-09-22 02:25 | ER Document Report ---
Addendum entered and electronically signed by ELIJAH BOO MD 09/22/18 11:15: Discharge - Discharge Clinical Impression: Methamphetamine use, Anxiety Condition: Stable Disposition: HOME, SELF-CARE Instructions: Anxiety (COUNT INCLUDES THE [facility]) Additional Instructions: You have been evaluated both medical and behavioral health teams and been deemed appropriate for discharge. You are encouraged to seek substance use treatment. You have provided a resource list of area providers including mobile crisis contact information if you change your mind and would like to obtain sobriety. You have an upcoming mental health appointment with ROYCE Dewey on Thursday09/27/2018 at 4 PM. NARCOTIC / OPIOD ABUSE: Narcotics and opiods are pain-relieving drugs that are often abused. They are addicting. Narcotics cause euphoria, but it often takes increasing amounts to "feel good" and avoid withdrawal symptoms. Overdose of narcotics causes small pupils, coma, and decreased breathing. It's a common cause of . Purity of street narcotics is unpredictable. Injection of narcotics is risky for abscesses, endocarditis (heart infection), pneumonia, and AIDS. Withdrawal from narcotics causes goose bumps, watery mouth, sweating, nasal congestion, muscle aches, abdominal cramps, vomiting, and diarrhea. There's often restlessness and confusion. Treatment programs are available, but you must make the decision to quit. Medication (such as clonidine) can be prescribed to control the symptoms of withdrawal. AMPHETAMINE / METHAMPHETAMINE ABUSE: Amphetamines are addicting stimulants. Amphetamines overstimulate the nervous system and give a false feeling of power and mastery. These drugs may be obtained as prescription pills for weight loss, narcolepsy, or attention-deficit disorder. More often they're bought as an illegal street drug, methamphetamine (crank, crystal, speed). Using amphetamines repeatedly can lead to serious medical problems inclu ding malnutrition, severe depression, and paranoia. It can take increasing amounts to feel good. Eventually, there will be a "burn out." When you go off amphetamines there is a period of depression that may last for weeks or even months. High doses of amphetamines can cause seizures, confusion, hallucinations, delusions, high blood pressure, muscle damage, heart damage, or sudden . Many times these deadly complications occur even with "normal" doses. Injection of amphetamines is risky for developing abscesses, endocarditis (heart infection), pneumonia, and AIDS. Withdrawal from amphetamines often causes anxiety, depression, and drug cravings. Some users become paranoid and psychotic. There may be cramps, nausea, and vomiting. Many treatment programs are available, but you must make the decision to quit. Medication can be prescribed to control the symptoms of amphetamine toxicity (beta blockers or benzodiazepines). Withdrawal symptoms may require tranquilizers. FOLLOW-UP CARE: If you have been referred to a physician for follow-up care, call the physicians office for an appointment as you were instructed or within the next two days. If you experience worsening or a significant change in your symptoms, notify the physician immediately or return to the Emergency Department at any time for re-evaluation. Referrals: [facility] [Outside] - 09/27/18 4:00 pm [facility] Crisis Team [Outside] - Follow up as needed Addendum entered and electronically signed by FE SAMPSON LCSWA 09/22/18 11:13: Discharge - Discharge Clinical Impression: Methamphetamine use, Anxiety Condition: Stable Disposition: HOME, SELF-CARE Instructions: Anxiety (COUNT INCLUDES THE [facility]) Additional Instructions: You have been evaluated both medical and behavioral health teams and been deemed appropriate for discharge. You are encouraged to seek substance use treatment. You have provided a resource list of area providers including mobile crisis contact information if you change your mind and would like to obtain sobriety. You have an upcoming mental health appointment with ROYCE Dewey on Thursday09/27/2018 at 4 PM. NARCOTIC / OPIOD ABUSE: Narcotics and opiods are pain-relieving drugs that are often abused. They are addicting. Narcotics cause euphoria, but it often takes increasing amounts to "feel good" and avoid withdrawal symptoms. Overdose of narcotics causes small pupils, coma, and decreased breathing. It's a common cause of . Purity of street narcotics is unpredictable. Injection of narcotics is risky for abscesses, endocarditis (heart infection), pneumonia, and AIDS. Withdrawal from narcotics causes goose bumps, watery mouth, sweating, nasal congestion, muscle aches, abdominal cramps, vomiting, and diarrhea. There's often restlessness and confusion. Treatment programs are available, but you must make the decision to quit. Medication (such as clonidine) can be prescribed to control the symptoms of withdrawal. AMPHETAMINE / METHAMPHETAMINE ABUSE: Amphetamines are addicting stimulants. Amphetamines overstimulate the nervous system and give a false feeling of power and mastery. These drugs may be obtained as prescription pills for weight loss, narcolepsy, or attention-deficit disorder. More often they're bought as an illegal street drug, methamphetamine (crank, crystal, speed). Using amphetamines repeatedly can lead to serious medical problems including malnutrition, severe depression, and paranoia. It can take increasing amounts to feel good. Eventually, there will be a "burn out." When you go off amphetamines there is a period of depression that may last for weeks or even months. High doses of amphetamines can cause seizures, confusion, hallucinations, delusions, high blood pressure, muscle damage, heart damage, or sudden . Many times these deadly complications occur even with "normal" doses. Injection of amphetamines is risky for developing abscesses, endocarditis (heart infection), pneumonia, and AIDS. Withdrawal from amphetamines often causes anxiety, depression, and drug cravings. Some users become paranoid and psychotic. There may be cramps, nausea, and vomiting. Many treatment programs are available, but you must make the decision to quit. Medication can be prescribed to control the symptoms of amphetamine toxicity (beta blockers or benzodiazepines). Withdrawal symptoms may require tranquilizers. FOLLOW-UP CARE: If you have been referred to a physician for follow-up care, call the physicians office for an appointment as you were instructed or within the next two days. If you experience worsening or a significant change in your symptoms, notify the physician immediately or return to the Emergency Department at any time for re-evaluation. Referrals: [facility] [Outside] - 09/27/18 4:00 pm [facility] Crisis Team [Outside] - Follow up as needed Original Note: ED General - General Chief Complaint: Anxiety Stated Complaint: NAUSEA,DIZZINESS Time Seen by Provider: 09/21/18 19:16 Mode of Arrival: Ambulatory TRAVEL OUTSIDE OF THE [place] IN LAST 30 DAYS: No - HPI Notes: Patient is a 32-year-old female that presents to the emergency department for chief complaint of anxiety and drug use. HPI is limited because patient is somnolent and continues to fall asleep during my exam. She does state that she used methamphetamine a day and a half ago. She reports she injected as well as snorted the drugs. She denied any drug use prior to the last few days. She states she has had a lot of anxiety recently. She denies homicidal and suicidal ideation. Currently she has no complaints o ther than feeling tired and wanting to go back to sleep. She is currently denying any chest pain, shortness of breath, abdominal pain, nausea/vomiting and diarrhea. Past Medical History: Anxiety, depression Past Surgical History: Ovarian cyst surgery Social History: Daily tobacco, methamphetamine use, marijuana use, occasional alcohol use Family History: Reviewed and noncontributory for presenting illness Allergies: Reviewed, see documented allergy list. REVIEW OF SYSTEMS: CONSTITUTIONAL : No fever No chills No diaphoresis No recent illness EENT: No vision changes No congestion No sore throat CARDIOVASCULAR: No chest pain No palpitations RESPIRATORY: No shortness of breath No cough No difficulty breathing GASTROINTESTINAL: No abdominal pain No nausea No vomiting No diarrhea GENITOURINARY: No dysuria No hematuria No difficulty urinating MUSCULOSKELETAL: No back pain No leg pain No arm pain SKIN: No rashes No lesions LYMPHATIC: No swollen, enlarged glands. NEUROLOGICAL: No lightheadedness No headache No weakness No paresthesias PSYCHIATRIC: No anxiety No depression PHYSICAL EXAMINATION: Vital signs reviewed, nursing noted reviewed. GENERAL: Somnolent, wakes to verbal stimuli. Well-nourished and in no acute distress. HEAD: Atraumatic, normocephalic. EYES: Eyes appear normal, extraocular movements intact, sclera anicteric, conjunctiva are normal. ENT: nares patent, oropharynx clear without exudates. Moist mucous membranes. NECK: Normal range of motion, supple without lymphadenopathy LUNGS: Breath sounds clear to auscultation bilaterally and equal. No wheezes rales or rhonchi. HEART: Regular rate and rhythm without murmurs ABDOMEN: Soft, nontender, normoactive bowel sounds. No rebound, guarding, or rigidity. No masses appreciated. EXTREMITIES: Nontender, good range of motion, no pitting or edema. NEUROLOGICAL: No focal neurological deficits. Moves all extremities spontaneously Motor and sensory grossly intact on exam. PSYCH: Normal mood, normal affect. SKIN: Warm, Dry, normal turgor, no rashes or lesions noted on exposed skin - Related Data Allergies/Adverse Reactions: No Known Allergies Allergy (Verified 06/22/18 15:07) Past Medical History - General Information source: Patient - Social History Smoking Status: Current Every Day Smoker Chew tobacco use (# tins/day): No Frequency of alcohol use: Occasional Drug Abuse: Marijuana, Methamphetamine Family History: Reviewed & Not Pertinent Patient has suicidal ideation: No Patient has homicidal ideation: No Renal/ Medical History: Denies: Hx Peritoneal Dialysis GI Medical History: Reports: Hx Irritable Bowel - Possible Psychiatric Medical History: Reports: Hx Anxiety, Hx Depression Past Surgical History: Reports: Hx Gynecologic Surgery - R ovary cyst removed by laparoscopy Physical Exam - Vital signs Vitals: Temp Pulse Resp BP Pulse Ox 98.0 F 92 16 136/83 H 100 09/21/18 17:12 09/21/18 17:12 09/21/18 17:12 09/21/18 17:12 09/21/18 17:12 Course - Re-evaluation Re-evalutation: 09/22/18 02:25 Vitals reviewed. Nursing notes reviewed. Patient is afebrile and nontoxic in appearance. Her lab work does show urinary tract infection without sepsis. Patient was given IM Rocephin for her UTI. She did receive Ativan in triage and is somnolent during my exam. She will wake easily to verbal stimuli but has fallen asleep throughout my interview with her. Patient was seen hallucinating by nursing staff. She will remain in the emergency room for further psych pinky luation in the morning. Patient in agreement with this plan. Laboratory 09/21/18 09/21/18 09/21/18 20:45 20:45 21:04 WBC 9.6 RBC 4.69 Hgb 11.3 L Hct 34.4 L MCV 74 L MCH 24.1 L MCHC 32.9 RDW 16.7 H Plt Count 402 Seg Neutrophils % 69.5 Lymphocytes % 23.4 Monocytes % 5.6 Eosinophils % 1.0 Basophils % 0.5 Absolute Neutrophils 6.7 Absolute Lymphocytes 2.2 Absolute Monocytes 0.5 Absolute Eosinophils 0.1 Absolute Basophils 0.1 Sodium Potassium Chloride Carbon Dioxide Anion Gap BUN Creatinine Est GFR ( Amer) Est GFR (Non-Af Amer) Glucose Calcium Total Bilirubin Direct Bilirubin Neonat Total Bilirubin Neonat Direct Bilirubin Neonat Indirect Bili AST ALT Alkaline Phosphatase Total Protein Albumin Serum HCG, Qual Urine Color JARRETT Urine Appearance CLOUDY Urine pH 7.0 Ur Specific [place] 1.017 Urine Protein 30 H Urine Glucose (UA) NEGATIVE Urine Ketones 80 H Urine Blood MODERATE H Urine Nitrite POSITIVE H Urine Bilirubin NEGATIVE Urine Urobilinogen 4.0 H Ur Leukocyte Esterase SMALL H Urine WBC (Auto) 26 Urine RBC (Auto) 2 Urine Bacteria (Auto) 1+ Squamous Epi Cells Auto 11 Urine Mucus (Auto) MANY Urine Ascorbic Acid NEGATIVE Salicylates Urine Opiates Screen NEGATIVE Urine Methadone Screen NEGATIVE Acetaminophen Ur Barbiturates Screen NEGATIVE Ur Phencyclidine Scrn NEGATIVE Ur Amphetamines Screen U Benzodiazepines Scrn UNCONFIRMED POSITIVE Urine Cocaine Screen NEGATIVE U Marijuana (THC) Screen UNCONFIRMED POSITIVE Serum Alcohol 09/21/18 09/21/18 21:04 21:04 WBC RBC Hgb Hct MCV MCH MCHC RDW Plt Count Seg Neutrophils % Lymphocytes % Monocytes % Eosinophils % Basophils % Absolute Neutrophils Absolute Lymphocytes Absolute Monocytes Absolute Eosinophils Absolute Basophils Sodium 140.8 Potassium 3.8 Chloride 104 Carbon Dioxide 22 Anion Gap 15 BUN 7 Creatinine 0.68 Est GFR ( Amer) > 60 Est GFR (Non-Af Amer) > 60 Glucose 112 H Calcium 10.0 Total Bilirubin 0.8 Direct Bilirubin 0.2 Neonat Total Bilirubin Not Reportable Neonat Direct Bilirubin Not Reportable Neonat Indirect Bili Not Reportable AST 86 H ALT 112 H Alkaline Phosphatase 89 Total Protein 7.6 Albumin 4.5 Serum HCG, Qual NEGATIVE Urine Color Urine Appearance Urine pH Ur Specific [place] Urine Protein Urine Glucose (UA) Urine Ketones Urine Blood Urine Nitrite Urine Bilirubin Urine Urobilinogen Ur Leukocyte Esterase Urine WBC (Auto) Urine RBC (Auto) Urine Bacteria (Auto) Squamous Epi Cells Auto Urine Mucus (Auto) Urine Ascorbic Acid Salicylates < 1.0 L Urine Opiates Screen Urine Methadone Screen Acetaminophen < 10 L Ur Barbiturates Screen Ur Phencyclidine Scrn Ur Amphetamines Screen U Benzodiazepines Scrn Urine Cocaine Screen U Marijuana (THC) Screen Serum Alcohol < 10 Chest X-Ray 09/21/18 19:22 IMPRESSION: No acute disease. - Vital Signs Vital signs: Temp Pulse Resp BP Pulse Ox 97.3 F 87 18 117/73 100 09/21/18 21:48 09/21/18 21:48 09/21/18 21:48 09/21/18 21:48 09/21/18 21:48 - Laboratory Result Diagrams: 09/21/18 21:04 09/21/18 21:04 Laboratory results interpreted by me: 0209/21/18 09/21/18 20:45 21:04 21:04 Hgb 11.3 L Hct 34.4 L MCV 74 L MCH 24.1 L RDW 16.7 H Glucose 112 H AST 86 H ALT 112 H Urine Protein 30 H Urine Ketones 80 H Urine Blood MODERATE H Urine Nitrite POSITIVE H Urine Urobilinogen 4.0 H Ur Leukocyte Esterase SMALL H Salicylates < 1.0 L Acetaminophen < 10 L - EKG Interpretation by Me Additional EKG results interpreted by me: 09/22/18 02:17 Interpreted by myself 1945: Normal sinus rhythm, rate 83, incomplete right bundle branch block, no ectopy, normal axis Discharge - Discharge Clinical Impression: Methamphetamine use, Anxiety Condition: Stable
[2018-09-22] MEDS ORDERED: CEFTRIAXONE INJ 1000 MG VIAL IM ONE (02:37)
--- NOTE | 2018-09-22 07:54 | EKG REPORT ---
SEVERITY:- ABNORMAL ECG - SINUS ARRHYTHMIA, RATE 63-99 INCOMPLETE RIGHT BUNDLE BRANCH BLOCK : Confirmed by: Duke Cervantes MD 22-Sep-2018 07:53:31
[2018-09-22 08:46] VITALS: BP 116/72
--- NOTE | 2018-09-22 10:18 | ER Document Report ---
Doctor's Note Notes: 09/22/18 10:16 Rounds: Chart reviewed and patient interviewed. Patient is tearful at this time. Has a history of anxiety. Also substance abuse (methamphetamine and opioids). Vital signs are all essentially normal. Patient's labs were unremarkable except for her drug screen which is positive for amphetamines, benzos, and marijuana. Patient may have a UTI and was given Rocephin already. Patient appears to be medically stable for transfer or discharge. Teodoro Curtis MD
--- NOTE | 2018-09-24 16:07 | PSYCHOLOGICAL NOTE ---
Psych Note - Psych Note Date seen by psych provider: 09/22/18 Time seen by psych provider: 08:15 Psych Note: Reason for Consult: AMS Patient is a 32-year-old female that presents to the emergency department for chief complaint of anxiety and drug use. HPI is limited because patient is somnolent and continues to fall asleep during attending physicians exam. Patient does disclose methamphetamine use a day and a half ago. Patient reports that she came to [facility] ED because her ankles are swollen and she had difficulty breathing. She continued to report that she thought she was getting arrested because they were doing a raid on the home she was staying at for drugs however the police did release her since she was only using and not selling. Patient denies thoughts of wanting to harm herself or others. She reports that she currently lives in her car. When asked if she is interested in detox she reports that she has no interest in that. She discloses that she has used AA in the past. She confirms she uses both heroin and methamphetamine. Patient is alert and orientated to person, place, time and circumstance. Mood is euthymic with congruent affect. Patient denies suicidal and homicidal ideations. Clinician notes there was concern with patient was possibly responding to internal stimuli. Patient reports she was using methamphetamines and was positive for it. Delusions are absent behaviors congruent with an intact reality based presentation i.e. organized and linear thought processes. Eye contact is well-maintained. Conversational speech is within normal rate, tone and prosody. Intellectual abilities appear to be within the average range. Attention and concentration are fair. Insight, judgment, impulse control are fair. No medication recommendations at this time Substance abuse; methamphetamine Impression\\plan: Patient is cleared from acute psychiatric services. Patient is no longer demonstrating behaviors of responding to internal stimuli or being under the influence. While patient reports her last use of methamphetamine was a day and half ago it is possible the patient was actively under the influence when she came to [facility] the night before. As noted by attending nurse upon arrival Patient is very aggitated and verbally aggressive towards this RN. Patient verbalizes she has anxiety and seems very anxious as demonstrated by failure to make eye contact, being fidgety and hurried speech. Patient verbalizes that she believes "people are making fun of me" and has verbalized to this RN that several conversation ongoing are "about me". Patient refuses assistance with detox. Dr. Nogueira was consulted and care management this patient; attending physicians agreement with recommendations and disposition.
== END 2018-09-22 11:27 | disposition home or self-care (01) ==
LOC: ER 17:01
DX: F41.9 Anxiety disorder, unspecified (principal); F15.90 Other stimulant use, unspecified, uncomplicated; R11.0 Nausea; R42 Dizziness and giddiness; F17.200 Nicotine dependence, unspecified, uncomplicated
CPT/HCPCS: 93005; 99284; 96372; 96374; 36415; 87086; 80307 ×4; 84703; 85025; 87088; 80053; 81001; 84484; 87186; 71046; 93010; J2060; J0696

== ENCOUNTER 2018-09-29 17:35 | Emergency (ER) | payer SELFPAY ==
--- NOTE | 2018-09-29 17:56 | ER Document Report ---
ED Medical Screen (RME) - General Chief Complaint: Suicidal Ideation Stated Complaint: PSYCH EVAL Time Seen by Provider: 09/29/18 17:50 Notes: 32 years old male discharged from the hospital a week ago for substance abuse, presents today from the detox program housing, claiming that she is feeling depressed and does not want to live anymore. TRAVEL OUTSIDE OF THE [place] IN LAST 30 DAYS: No - Related Data Allergies/Adverse Reactions: No Known Allergies Allergy (Verified 09/29/18 17:35) Past Medical History Renal/ Medical History: Denies: Hx Peritoneal Dialysis GI Medical History: Reports: Hx Irritable Bowel - Possible Psychiatric Medical History: Reports: Hx Anxiety, Hx Depression Past Surgical History: Reports: Hx Gynecologic Surgery - R ovary cyst removed by laparoscopy Physical Exam - Vital signs Vitals: Temp Pulse Resp BP Pulse Ox 98.3 F 104 H 16 129/73 H 100 09/29/18 17:40 09/29/18 17:40 09/29/18 17:40 09/29/18 17:40 09/29/18 17:40 Course - Vital Signs Vital signs: Temp Pulse Resp BP Pulse Ox 98.3 F 104 H 16 129/73 H 100 09/29/18 17:40 09/29/18 17:40 09/29/18 17:40 09/29/18 17:40 09/29/18 17:40
[2018-09-29 18:51] LABS: ABSOLUTE BASOPHILS # (AUTO) 0.1 10^3/uL (0.0-0.2); ABSOLUTE EOSINOPHILS # (AUTO) 0.1 10^3/uL (0.0-0.6); ABSOLUTE LYMPHOCYTES (AUTO) 2.4 10^3/uL (0.5-4.7); ABSOLUTE MONOCYTES (AUTO) 0.6 10^3/uL (0.1-1.4); ABSOLUTE NEUT (AUTO) 8.5 10^3/uL (1.7-8.2); BASOPHILS % (AUTO) 0.4 % (0-2); EOSINOPHILS % (AUTO) 0.7 % (0-6); HEMATOCRIT 37.9 % (36.0-47.0); HEMOGLOBIN 12.2 g/dL (12.0-15.5); LYMPHOCYTES % (AUTO) 20.5 % (13-45); MEAN CORPUSCULAR HGB CONC 32.1 g/dL (32.0-36.0); MEAN CORPUSCULAR VOLUME 75 fl (80-97); MONOCYTES % (AUTO) 5.4 % (3-13); PLATELET COUNT 307 10^3/uL (150-450); RED BLOOD COUNT 5.09 10^6/uL (3.72-5.28); RED CELL DISTRIBUTION WIDTH 16.9 % (11.5-14.0); TOTAL CELLS COUNTED % (AUTO) 100 %; WHITE BLOOD COUNT 11.7 10^3/uL (4.0-10.5)
[2018-09-29 19:00] LABS: ALANINE AMINOTRANSFERASE 25 U/L (9-52); ALBUMIN 4.8 g/dL (3.5-5.0); ALKALINE PHOSPHATASE 74 U/L (38-126); ANION GAP 11 (5-19); ASPARTATE AMINO TRANSFERASE 25 U/L (14-36); BILIRUBIN,DIRECT 0.2 mg/dL (0.0-0.4); BILIRUBIN,TOTAL 0.9 mg/dL (0.2-1.3); BLOOD UREA NITROGEN 9 mg/dL (7-20); CALCIUM 10.2 mg/dL (8.4-10.2); CARBON DIOXIDE 29 mmol/L (22-30); CHLORIDE 104 mmol/L (98-107); GLUCOSE 95 mg/dL (75-110); POTASSIUM 3.8 mmol/L (3.6-5.0); SODIUM 143.9 mmol/L (137-145); TOTAL PROTEIN 8.1 g/dL (6.3-8.2)
[2018-09-29 19:02] LABS: ACETAMINOPHEN < 10 ug/mL (10-30); ALCOHOL < 10 mg/dL (NONE DETECTED); SALICYLATE < 1.0 mg/dL (2.0-20.0)
[2018-09-29 19:04] LABS: APPEARANCE,URINE SLIGHTLY-CLOUDY; BILIRUBIN,URINE NEGATIVE (NEGATIVE); COLOR,URINE YELLOW; GLUCOSE, URINE NEGATIVE (NEGATIVE); KETONES,URINE NEGATIVE (NEGATIVE); LEUKOCYTE ESTERASE,URINE TRACE (NEGATIVE); NITRITE,URINE NEGATIVE (NEGATIVE); PROTEIN,URINE NEGATIVE (NEGATIVE); URINE SPECIFIC GRAVITY 1.018; UROBILINOGEN,URINE NEGATIVE mg/dL (<2.0)
[2018-09-29 19:20] LABS: URINE AMPHETAMINES SCREEN NEGATIVE; URINE BARBITURATES SCREEN NEGATIVE; URINE BENZODIAZEPINES SCREEN NEGATIVE; URINE COCAINE SCREEN NEGATIVE; URINE MARIJUANA (THC) SCREEN UNCONFIRMED POSITIVE; URINE METHADONE SCREEN NEGATIVE; URINE PHENCYCLIDINE SCREEN NEGATIVE
[2018-09-29] MEDS ORDERED: ONDANSETRON 4 MG TAB.RAPDIS PO ONE (20:35)
[2018-09-29] MEDS ORDERED: OLANZAPINE 5 MG TAB.RAPDIS PO ONE (21:44)
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
--- NOTE | 2018-09-30 10:08 | PSYCHOLOGICAL NOTE ---
Psych Note - Psych Note Date seen by psych provider: 09/30/18 Time seen by psych provider: 07:20 Psych Note: Reason for Consult: depression 32-year-old female who presents to the emergency department today with complaints of anxiety and depression. Patient reports coming to [facility] ED because of continued significant depression that his impacting her daily living. She reports that she has been sober since clinician saw her 9 days ago on 09/21/2018. She reports that since then she has been able to get into sober living facility and has attempted to follow-up with outpatient mental health provider as recommended during previous [facility] ED visit. She reports that when she went to [facility] she found out her Medicaid was lapsed and was unsure where she could go. She denies any thoughts of wanting to harm herself and states she does not want to but has difficulty getting out of bed and does have "dark thoughts" at times. Patient is alert and orientated to person, place, time and circumstance. Mood is euthymic with congruent affect. Patient denies suicidal and homicidal ideation reports moments of "dark thoughts" comes and goes (passive suicidal ideation i.e. no plans means or intent). Patient has successfully maintain sobriety for 9 days. Delusions are absent behaviors congruent with intact reality based presentation i.e. organized and linear thought process. Eye contact was well-maintained. Conversational speech is within normal rate, tone and prosody. Intellectual abilities appear to be within the average range. Attention and concentration are good. Insight, judgment, impulse control are currently good. Medication recommendations per [facility]'s contracted psychiatrist Dr. Perez CORRAL are as follows Effexor 37.5 mg daily BuSpar 7.5 mg twice daily Substance induced depressive disorder Impression\\plan: Patient is cleared from acute psychiatric services. Clinician notes patient was seen on 09/21/2018 by this clinician department. Patient has attempted to follow all recommendations provided during that visit. Patient has been able to maintain sobriety for approximately 9 days. She has successfully gotten into a sober-living housing. She attempted to go to an outpatient mental health provider however was told her Medicaid is now lapsed. Patient discloses continued struggle with depressive symptoms. Medication recommendations have been provided. Patient received a resource list of area providers including mobile crisis contact information. Patient is recommended to follow-up with an outpatient mental health provider for continued assistance in mental health and substance abuse treatment. Dr. Nogueira was consulted and the care management of this patient; attending physicians in agreement with recommendations and disposition.
--- NOTE | 2018-09-30 10:25 | ER Document Report ---
Doctor's Note Notes: 09/30/18 10:24 Patient seen and evaluated. She does appear depressed. She denies any suicidal or homicidal ideation. She has been making improvements in her life and has been attempting to get clean off of drugs. She is no longer living out of a car and states she is currently at a women's nursing home. Because of insurance lapsing she is having a difficult time getting medications. She will be started on Effexor and BuSpar for her depression. She was encouraged to follow as an outpatient as directed by psych. She will return to the emergency room for new or worsening symptoms. She is stable at discharge.
[2018-09-30 10:40] VITALS: BP 101/61
--- NOTE | 2018-09-30 22:19 | EKG REPORT ---
SEVERITY:- OTHERWISE NORMAL ECG - SINUS ARRHYTHMIA, RATE 60-88 : Confirmed by: Chantelle Hyatt 30-Sep-2018 22:18:25
== END 2018-09-30 11:50 | disposition home or self-care (01) ==
LOC: ER 17:35
DX: F15.94 Other stimulant use, unspecified with stimulant-induced mood disorder (principal); F32.89 Other specified depressive episodes; F41.9 Anxiety disorder, unspecified; R45.851 Suicidal ideations; F17.210 Nicotine dependence, cigarettes, uncomplicated
CPT/HCPCS: 93005; 99285; 36415; 80307 ×4; 85025; 81025; 80053; 81001; 93010; J3490; S0119

== ENCOUNTER 2020-01-09 10:40 | Emergency (ER) | payer SELFPAY ==
--- NOTE | 2020-01-09 11:23 | ER Document Report ---
ED ENT - General Chief Complaint: Sore Throat Stated Complaint: SORE THROAT,SWELLING Time Seen by Provider: 01/09/20 10:50 Primary Care Provider: MANDY BURNS MD [ACTIVE STAFF] - Follow up as needed Mode of Arrival: Ambulatory Information source: Patient Notes: 34-year-old female past medical history significant for asthma presents to the emergency room complaining of a sore throat for the past 2 days states is able to swallow but is painful. Denies any fevers, shortness of breath, no difficulty breathing. No recent travel. No COVID-19 exposure. Denies any sima nce of . TRAVEL OUTSIDE OF THE [place] IN LAST 30 DAYS: No - Related Data Allergies/Adverse Reactions: No Known Allergies Allergy (Verified 09/29/18 17:35) Past Medical History - General Information source: Patient - Social History Smoking Status: Current Every Day Smoker Frequency of alcohol use: None Drug Abuse: None Family History: Reviewed & Not Pertinent Patient has homicidal ideation: No Renal/ Medical History: Denies: Hx Peritoneal Dialysis GI Medical History: Reports: Hx Irritable Bowel - Possible Psychiatric Medical History: Reports: Hx Anxiety, Hx Depression Past Surgical History: Reports: Hx Gynecologic Surgery - R ovary cyst removed by laparoscopy Review of Systems - Review of Systems Constitutional: No symptoms reported EENT: Throat pain Cardiovascular: No symptoms reported Respiratory: No symptoms reported Musculoskeletal: No symptoms reported Skin: No symptoms reported Neurological/Psychological: No symptoms reported -: Yes All other systems reviewed and negative Physical Exam - Vital signs Vitals: Temp 98.4 F 01/09/20 10:41 - General General appearance: Appears well, Alert In distress: Moderate - HEENT Head: Normocephalic, Atraumatic Eyes: Normal Pupils: PERRL Ears: Normal External canal: Normal Tympanic membrane: Normal Sinus: Normal Nasal: Normal Pharynx: Erythema - Bilateral tonsillar enlargement without exudate. No: Exudate, Peritonsillar abscess Neck: Lymphadenopathy - Bilateral anterior cervical lymphadenopathy. - Respiratory Respiratory status: No respiratory distress Chest status: Nontender Breath sounds: Normal Chest palpation: Normal - Cardiovascular Rhythm: Tachycardia Heart sounds: Normal auscultation Murmur: No Friction rub: No - Abdominal Inspection: Normal Distension: No distension Bowel sounds: Normal Tenderness: Nontender Organomegaly: No organomegaly - Neurological Neuro grossly intact: Yes Cognition: Normal Orientation: AAOx4 [place] Coma Scale Eye Opening: Spontaneous [place] Coma Scale Verbal: Oriented [place] Coma Scale Motor: Obeys Commands [place] Coma Scale Total: 15 Speech: Normal Motor strength normal: LUE, RUE, LLE, RLE Sensory: Normal - Skin Skin Temperature: Warm Skin Moisture: Dry Skin Color: Normal Course - Re-evaluation Re-evalutation: 01/09/20 12:00 Patient is resting comfortably she is afebrile, nontoxic-appearing, able to tolerate p.o. fluids. Reviewed positive strep results with patient. She was counseled to push fluids. All medications as prescribed. Outpatient follow-up with a primary care physician if not improving in 2 to 3 days. On-call physician was provided. Patient was given strict return to the emergency room guidelines. Return for any new or worsening symptoms. All questions were answered. Patient verbalized understanding and agrees with plan of care. - Vital Signs Vital signs: Temp Pulse Resp BP Pulse Ox 98.4 F 108 H 16 113/65 100 01/09/20 12:15 01/09/20 12:15 01/09/20 12:15 01/09/20 12:15 01/09/20 12:15 Discharge - Discharge Clinical Impression: Strep throat Condition: Stable Disposition: HOME, SELF-CARE Instructions: Acetaminophen, Strep Throat ([facility]) Additional Instructions: You have been diagnosed with strep throat based on a positive strep test. You will be discharged home on steroids to help with your throat discomfort. Please continue to take ibuprofen 600 mg every 6 hours or Tylenol 1000 mg every 6 hours as needed for throat discomfort. For fullness prescribed. Viscous lidocaine as needed for pain you can also gargle with salt water. Continue to drink plenty of fluids. Follow-up with a primary care doctor in the next several days. Return if you become unable to swallow, have difficulty breathing, pass out, have persistent vomiting that prevents you from being able to tolerate fluids, or have any other symptoms that are concerning to you. Prescriptions: Lidocaine HCl [Xylocaine 2% Viscous Soln 15 ml Udcup] 15 ml MM Q4HP PRN #100 ml PRN Reason: Amoxicillin 1 tab PO TID #30 tab Methylprednisolone [Medrol Dosepack (4 mg/Tab) 21 Tab/Dosepak] 4 mg PO ASDIR PRN #21 tab.ds.pk PRN Reason: Referrals: MANDY BURNS MD [ACTIVE STAFF] - Follow up as needed
[2020-01-09] MEDS ORDERED: ACETAMINOPHEN 325 MG TABLET PO ONE (11:26)
[2020-01-09 12:16] VITALS: BP 113/65
== END 2020-01-09 12:16 | disposition home or self-care (01) ==
LOC: ER 10:40
DX: J02.0 Streptococcal pharyngitis (principal); F17.200 Nicotine dependence, unspecified, uncomplicated
CPT/HCPCS: 87880; 99283

== ENCOUNTER 2020-04-06 12:39 | Emergency (ER) | payer SELFPAY ==
[2020-04-06] MEDS ORDERED: ACETAMINOPHEN 325 MG TABLET PO ONE (13:04)
[2020-04-06] MEDS ORDERED: PENICILLIN G BENZATHINE 1.2 MILLION UNIT/2 ML DISP.SYRIN IM ONE (14:29)
--- NOTE | 2020-04-06 14:35 | ER Document Report ---
ED ENT - General Chief Complaint: Flu Symptoms Stated Complaint: SORE THROAT/HEADACHE/NAUSEA/CHILLS/FEVERISH Notes: CHIEF COMPLAINT: Sore throat cough and body ache HPI: 34-year-old female presenting to the emergency department for evaluation of sore throat with slight dry cough and body ache that began yesterday. No chest pain shortness of breath at this time. Patient reports she had strep throat 2 months ago and believes she has strep throat again. She is also concerned about COVID ROS: See HPI - all other systems were reviewed and are otherwise negative Constitutional: no fever Eyes: no drainage, no blurred vision ENT: no runny nose, + sore throat Cardiovascular: no chest pain Resp: no SOB, + cough GI: no vomiting, no diarrhea, no abdominal pain : no dysuria Integumentary: no rash Allergy: no hives Musculoskeletal: Positive myalgia Neurological: no numbness/tingling, no weakness MEDICATIONS: I agree with the patient medications as charted by the RN. ALLERGIES: I agree with the allergies as charted by the RN. PAST MEDICAL HISTORY/PAST SURGICAL HISTORY: Reviewed and agree as charted by RN. SOCIAL HISTORY: Reviewed and agree as charted by RN. FAMILY HISTORY: No significant familial comorbid conditions directly related to patient complaint EXAM: Reviewed vital signs as charted by RN. CONSTITUTIONAL: Alert and oriented and responds appropriately to questions. Well-appearing; well-nourished HEAD: Normocephalic; atraumatic EYES: PERRL; Conjunctivae clear, sclerae non-icteric ENT: normal nose; no rhinorrhea; moist mucous membranes; posterior pharynx erythematous with exudate, no uvula edema or deviation, positive bilateral tonsi llar hypertrophy, phonation normal NECK: Supple without meningismus; non-tender; positive bilateral anterior cervical lymphadenopathy, no masses CARD: RRR; no murmurs, no clicks, no rubs, no gallops; symmetric distal pulses RESP: Normal chest excursion without splinting or tachypnea; breath sounds clear and equal bilaterally; no wheezes, no rhonchi, no rales, pulse oximetry 98% on room air not hypoxic ABD/GI: Normal bowel sounds; non-distended; soft, non-tender, no rebound, no guarding; no palpable organomegaly or masses. BACK: The back appears normal and is non-tender to palpation, there is no CVA tenderness EXT: Normal ROM in all joints; non-tender to palpation; no cyanosis, no effusions, no edema SKIN: Normal color for age and race; warm; dry; good turgor; no acute lesions noted NEURO: Moves all extremities equally; Motor and sensory function intact PSYCH: The patient's mood and manner are appropriate. Grooming and personal hygiene are appropriate. MDM: 34-year-old female presenting with slight dry cough, body ache, sore throat for 1 day. Positive strep test. She elects Bicillin treatment. She would like a COVID test. She will be a person under investigation at this time. Patient chest x-ray does not show acute infiltrate. Discharge home to self quarantine pending results TRAVEL OUTSIDE OF THE [place] IN LAST 30 DAYS: No - Related Data Allergies/Adverse Reactions: No Known Allergies Allergy (Verified 04/06/20 13:13) Past Medical History - Social History Smoking Status: Current Every Day Smoker Frequency of alcohol use: None Drug Abuse: None Family History: Reviewed & Not Pertinent Patient has homicidal ideation: No Renal/ Medical History: Denies: Hx Peritoneal Dialysis GI Medical History: Reports: Hx Irritable Bowel - Possible Psychiatric Medical History: Reports: Hx Anxiety, Hx Depression - anxiety Past Surgical History: Reports: Hx Gynecologic Surgery - R ovary cyst removed by laparoscopy Physical Exam - Vital signs Vitals: Temp 100.3 F 04/06/20 12:50 Course - Re-evaluation Re-evalutation: 04/06/20 14:33 Chest x-ray on my review does not show evidence of a significant infiltrate suggesting pneumonia - Vital Signs Vital signs: Temp Pulse Resp BP Pulse Ox 100.3 F 102 H 18 123/76 97 04/06/20 13:00 04/06/20 13:00 04/06/20 13:00 04/06/20 13:00 04/06/20 13:00 Discharge - Discharge Clinical Impression: Strep pharyngitis, Person under investigation for COVID-19 Condition: Stable Disposition: HOME, SELF-CARE Additional Instructions: Your strep test today was positive. You were treated with Bicillin. Motrin Tylenol consistently for discomfort and body ache. You may run fever still for 24 to 48 hours. Salt water gargles 3-4 times daily to help with throat discomfort. You are also concerned about COVID-19 and did have a COVID test done today. You are considered a person under investigation at this time self quarantine at home for the next 5 days until you have a negative test result. COVID tests take 2 to 5 days and you should hear from someone at the hospital about your results Forms: Return to Work Referrals: MANDY BURNS MD [ACTIVE STAFF] - Follow up as needed
[2020-04-06 15:19] VITALS: BP 125/78
--- NOTE | 2020-04-06 18:19 | RADIOLOGY REPORT (SQ) ---
EXAM DESCRIPTION: CHEST SINGLE VIEW IMAGES COMPLETED DATE/TIME: 04/06/2020 1:18 pm REASON FOR STUDY: cough COMPARISON: 09/21/2018. EXAM PARAMETERS: NUMBER OF VIEWS: One view. TECHNIQUE: Single frontal radiographic view of the chest acquired. RADIATION DOSE: NA LIMITATIONS: None. FINDINGS: LUNGS AND PLEURA: No opacities, masses or pneumothorax. No pleural effusion. MEDIASTINUM AND HILAR STRUCTURES: No masses. Contour normal. HEART AND VASCULAR STRUCTURES: Heart normal in size. Normal vasculature. BONES: No acute findings. HARDWARE: None in the chest. OTHER: No other significant finding. IMPRESSION: NO ACUTE RADIOGRAPHIC FINDING IN THE CHEST. TECHNICAL DOCUMENTATION: JOB ID: [id number] 2010 [employer]- All Rights Reserved Reading location - IP/workstation name: [email or web address]
== END 2020-04-06 15:15 | disposition home or self-care (01) ==
LOC: ER 12:39
DX: J02.0 Streptococcal pharyngitis (principal); R05 Cough; M79.10 Myalgia, unspecified site; F17.200 Nicotine dependence, unspecified, uncomplicated; Z20.828 Contact with and (suspected) exposure to other viral communicable diseases
CPT/HCPCS: 99284; 96372; 87880; 87635; 71045; J0561; C9803

== ENCOUNTER 2020-05-02 11:00 | Emergency (ER) | payer SELFPAY ==
[2020-05-02 11:06] VITALS: BP 127/81
[2020-05-02] MEDS ORDERED: HEPATITIS B VIRUS VACCINE-PF 0.5 ML VIAL IM ONE (11:15)
[2020-05-02] MEDS ORDERED: HEPATITIS B IMMUNE GLOBULIN INJ 5 ML VIAL IM ONE (11:16)
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
[2020-05-03 08:37] LABS: HEPATITS B SURFACE ANTIGEN Negative (Negative)
[2020-05-03 10:00] LABS: HEPATITIS C VIRUS ANTIBODY <0.1 s/co ratio (0.0-0.9)
== END 2020-05-02 12:03 | disposition home or self-care (01) ==
LOC: ER 11:00
DX: Z20.5 Contact with and (suspected) exposure to viral hepatitis (principal); Z23 Encounter for immunization
CPT/HCPCS: 99283; 90472; 36415; 80074; 90371; 90744; G0008; 90471

== ENCOUNTER 2020-07-18 10:16 | Emergency (ER) | payer SELFPAY ==
--- NOTE | 2020-07-18 10:48 | ER Document Report ---
ED Extremity Problem, Lower - General Chief Complaint: Leg Injury Stated Complaint: RIGHT THIGH PAIN Time Seen by Provider: 07/18/20 10:30 TRAVEL OUTSIDE OF THE [place] IN LAST 30 DAYS: No - HPI Notes: 34-year-old female presents to ED for evaluation of fall sustained last week. Notes that she was attempting to get up from seated position when her small child grabbed her by the knees and hugged her causing her to lose her balance and fall onto the left foot and right thigh. Notes that she has pain tot he left medial foot which is improving, however right thigh pain is worse than before. Notes that it is worse with flexion and extension of the foot. Notes that she has pain to light touch and range of motion. Reports deep palpation does not make the pain worse. Denies any new trauma or injury. - Related Data Allergies/Adverse Reactions: No Known Allergies Allergy (Verified 07/18/20 10:53) Past Medical History - Social History Smoking Status: Never Smoker Family History: Reviewed & Not Pertinent - Medical History Medical History: Negative Renal/ Medical History: Denies: Hx Peritoneal Dialysis GI Medical History: Reports: Hx Irritable Bowel - Possible Psychiatric Medical History: Reports: Hx Anxiety, Hx Depression - anxiety Past Surgical History: Reports: Hx Gynecologic Surgery - R ovary cyst removed by laparoscopy Review of Systems - Review of Systems Notes: Constitutional: Negative for fever. HENT: Negative for sore throat. Eyes: Negative for visual changes. Cardiovascular: Negative for chest pain. Respiratory: Negative for shortness of breath. Gastrointestinal: Negative for abdominal pain, vomiting or diarrhea. Genitourinary: Negative for dysuria. Musculoskeletal: Negative for back pain. + right right leg pain. Skin: Negative for rash. Neurological: Negative for headaches, weakness or numbness. 10 point ROS negative except as marked above and in HPI. Physical Exam - Vital signs Vitals: Temp Pulse Resp BP Pulse Ox 97.9 F 86 16 125/72 100 07/18/20 10:28 07/18/20 10:28 07/18/20 10:28 07/18/20 10:28 07/18/20 10:28 General: No acute distress. Alert and oriented x3. Sitting comfortably in a stretcher. Skin: Intact without any jaundice, pallor, or erythema. Warm and dry. Heart: Regular rate and rhythm. S1,S2. No murmurs, rubs, or gallops. Lungs: Clear to auscultation bilaterally. No wheezes, rhonchi, rales. Equal chest expansion. No retractions. Abdomen: Soft, nontender to palpation, nondistended. Positive bowel sounds in all 4 quadrants. No hepatosplenomegaly. No masses. No CVA tenderness bilaterally. Neuro: GCS 15. Moving all extremities without discomfort. Extremities: Tenderness to palpation along anterior right mid thigh with minor ecchymosis. No erythema or swelling. No calf tenderness or edema. No cyanosis or clubbing. Radial and pedal pulses 2+ bilaterally. Brisk capillary refill. Psych: Mood and affect appropriate. Course - Re-evaluation Re-evalutation: 07/18/20 11:40 34-year-old female presents to ED for evaluation of right femur injury. Patient was evaluated with x-rays. Xrays were negative for fracture or dislocation. Imaging was discussed with patient. Patient is advised that soft tissue injury or ligamentous tear cannot be ruled out. Patient is advised to rest, ice and elevate the extremity. Apply ice to the affected area 20 minutes on, 20 minutes off throughout the day. Patient is given a prescription for tordol and flexaril. Given crutches to be nonweightbearing and cesar wrap for comfort. Patient is given a referral to orthopedics for follow up. Understands indications to return to ED. Understands course of management. Patient is in agreement with care plan. 07/18/20 12:09 - Vital Signs Vital signs: Temp Pulse Resp BP Pulse Ox 98.5 F 84 16 117/82 100 07/18/20 11:51 07/18/20 11:51 07/18/20 10:28 07/18/20 11:51 07/18/20 11:51 - Laboratory Results Critical Laboratory Results Reviewed: No Critical Results - Radiology Results Critical Radiology Results Reviewed: No Critical Results Discharge - Discharge Clinical Impression: Contusion of right thigh, initial encounter Condition: Stable Disposition: HOME, SELF-CARE Instructions: Sprain ([facility]) Prescriptions: Cyclobenzaprine HCl [Flexeril 10 mg Tablet] 10 mg PO QHS PRN #15 tablet PRN Reason: Ketorolac Tromethamine [Toradol 10 mg Tablet] 10 mg PO Q8HP PRN #15 tablet PRN Reason: Forms: Return to Work
--- NOTE | 2020-07-18 11:12 | RADIOLOGY REPORT (SQ) ---
EXAM DESCRIPTION: FEMUR RIGHT IMAGES COMPLETED DATE/TIME: 07/18/2020 11:02 am REASON FOR STUDY: fall COMPARISON: None. NUMBER OF VIEWS: Two views. TECHNIQUE: AP and lateral views of the right femur were obtained. LIMITATIONS: None. FINDINGS: MINERALIZATION: Normal. BONES: No acute fracture or periosteal reaction. SOFT TISSUES: No soft tissue swelling or radiopaque foreign body. OTHER: No other findings. IMPRESSION: No acute osseous abnormality of the right femur. TECHNICAL DOCUMENTATION: JOB ID: [id number] [employer]- All Rights Reserved Reading location - IP/workstation name: [email or web address]
[2020-07-18 11:52] VITALS: BP 117/82
== END 2020-07-18 11:56 | disposition home or self-care (01) ==
LOC: ER 10:16
DX: S70.11XA Contusion of right thigh, initial encounter (principal); M79.651 Pain in right thigh; W18.39XA Other fall on same level, initial encounter
CPT/HCPCS: 99283

== ENCOUNTER 2020-07-24 10:00 | Emergency (ER) | payer SELFPAY ==
--- NOTE | 2020-07-24 10:19 | ER Document Report ---
ED Medical Screen (RME) - General Chief Complaint: Leg Pain Stated Complaint: RIGHT LEG PAIN Time Seen by Provider: 07/24/20 10:08 TRAVEL OUTSIDE OF THE [place] IN LAST 30 DAYS: No - HPI Notes: 07/24/20 10:16 34-year-old female presents to the emergency room today for reoccurring right upper leg pain status post fall a week ago, was seen in the emergency room and told that she had a sprain. Patient is now complaining that she is having erythema, swelling and severe pain to her right upper thigh that has become progressively worse daily. Patient was given Toradol and Flexeril and advised to apply ice routinely. She states this is not helping. Reports she did take a Toradol this morning and her pain is currently 4 out of 5. She is unable to bear full weight while standing. Last menstrual cycle was 06/20/2020. She is not on any control, no history of blood clots, no recent surgeries, history of cancer, long periods of immobilization such as long car rides or flights. Patient is nontachycardic. Reports pain radiates to her right upper thigh. Denies any numbness or tingling down bilateral lower extremities, fever or chills. Denies any issues with bowel or bladder dysfunction I have greeted and performed a rapid initial assessment of this patient. A comprehensive ED assessment and evaluation of the patient, analysis of test results and completion of the medical decision making process will be conducted by additional ED providers. PHYSICAL EXAMINATION: GENERAL: Well-appearing, well-nourished and in mild distress. CV: s1, s2 regular LUNGS: No respiratory distress Musculoskeletal: Normal range of motion. scant erythema to anterior aspect of distal aspect of right upper thigh. Tenderness on palpation. Distal pulses +2 bilaterally and equally NEUROLOGICAL: Normal speech, normal gait. SKIN: Warm, Dry, normal turgor, no rashes or lesions noted. The patient was evaluated during a global COVID-19 pandemic and that diagnosis was suspected/considered upon their initial presentation. Their evaluation, treatment and testing was consistent with current guidelines for patients who present with complaints or symptoms and may be related to COVID-19. - Related Data Allergies/Adverse Reactions: No Known Allergies Allergy (Verified 07/18/20 10:53) Past Medical History Renal/ Medical History: Denies: Hx Peritoneal Dialysis GI Medical History: Reports: Hx Irritable Bowel - Possible Psychiatric Medical History: Reports: Hx Anxiety, Hx Depression - anxiety Past Surgical History: Reports: Hx Gynecologic Surgery - R ovary cyst removed by laparoscopy Physical Exam - Vital signs Vitals: Temp Pulse Resp BP Pulse Ox 98.3 F 96 16 113/79 99 07/23/20 10:04 07/23/20 10:04 07/23/20 10:04 07/23/20 10:04 07/23/20 10:04 Course - Vital Signs Vital signs: Temp Pulse Resp BP Pulse Ox 98.3 F 96 16 113/79 99 07/23/20 10:04 07/23/20 10:04 07/23/20 10:04 07/23/20 10:04 07/23/20 10:04
--- NOTE | 2020-07-24 10:27 | ER Document Report ---
ED Extremity Problem, Lower - General Chief Complaint: Leg Pain Stated Complaint: RIGHT LEG PAIN Time Seen by Provider: 07/24/20 10:08 Primary Care Provider: NATALY [facility] [Provider Group] - Follow up in 1 week [facility] [Provider Group] - Follow up in 1 week TRAVEL OUTSIDE OF THE [place] IN LAST 30 DAYS: No - HPI Notes: 34-year-old female with past medical history for depression, PTSD with complaints of persistent right thigh pain since sustaining an injury. Patient states that her daughter was climbing on her and jumping when she accidentally lost her balance and fell down onto the thigh. She states she had some bruising but she has the most pain when she lightly touches her skin. She states that it is like a burning hot pain and it is very severe. She states that time she cannot even bear weight on it. She feels like it is been getting worse for the past 2 weeks. She states she feels like there is some bruising to the leg. She denies any recent travel or being on hormonal control. She is never had a clot in her leg. She denies any chest pain or shortness of breath. - Related Data Allergies/Adverse Reactions: No Known Allergies Allergy (Verified 07/18/20 10:53) Past Medical History - General Information source: Patient - Social History Smoking Status: Current Every Day Smoker Chew tobacco use (# tins/day): No Frequency of alcohol use: None Drug Abuse: None Family History: Reviewed & Not Pertinent Renal/ Medical History: Denies: Hx Peritoneal Dialysis GI Medical History: Reports: Hx Irritable Bowel - Possible Psychiatric Medical History: Reports: Hx Anxiety, Hx Depression - anxiety Past Surgical History: Reports: Hx Gynecologic Surgery - R ovary cyst removed by laparoscopy Review of Systems - Review of Systems Constitutional: denies: Chills, Fever EENT: No symptoms reported Cardiovascular: denies: Chest pain, Palpitations, Heart racing, Syncope, Dizziness, Edema Respiratory: denies: Cough, Short of breath Gastrointestinal: denies: Abdominal pain, Diarrhea, Nausea, Vomiting Genitourinary: No symptoms reported Female Genitourinary: No symptoms reported Musculoskeletal: See HPI Skin: No symptoms reported Hematologic/Lymphatic: No symptoms reported Neurological/Psychological: No symptoms reported -: Yes All other systems reviewed and negative Physical Exam - Vital signs Vitals: Temp Pulse Resp BP Pulse Ox 98.3 F 96 16 113/79 99 07/23/20 10:04 07/23/20 10:04 07/23/20 10:04 07/23/20 10:04 07/23/20 10:04 Interpretation: Normal - Notes Notes: PHYSICAL EXAMINATION: GENERAL: Well-appearing, well-nourished and in no acute distress. HEAD: Atraumatic, normocephalic. EYES: Pupils equal round and reactive to light, extraocular movements intact, sclera anicteric, conjunctiva are normal. ENT: nares patent, oropharynx clear without exudates. Moist mucous membranes. NECK: Normal range of motion, supple without lymphadenopathy LUNGS: Breath sounds clear to auscultation bilaterally and equal. No wheezes rales or rhonchi. HEART: Regular rate and rhythm without murmurs ABDOMEN: Soft, nontender, normoactive bowel sounds. No guarding, no rebound. No masses appreciated. EXTREMITIES: Patient is acutely tender to the right anterior thigh. There are several yellowing ecchymosis areas but no evidence for large hematoma or deformity. The thigh does not appear to be edematous. There is some mild tenderness to the back of the knee and calf. The leg is not unilaterally swollen. There is no warmth. There is no erythema. However, patient reports significant pain with light palpation to the upper thigh on the lateral aspect. Her pain is out of proportion to exam. She is nontender to palpation of bilateral ankles, bilateral bilateral hips. Dorsiflexion and plantar flexion are 5/5 against resistance. DP pulses are equal. Compartments are soft. NEUROLOGICAL: No focal neurological deficits. Moves all extremities spontaneously and on command. PSYCH: Normal mood, normal affect. SKIN: Warm, Dry, normal turgor, no rashes or lesions noted. Course - Re-evaluation Re-evalutation: 07/24/20 Impression: Right thigh pain she does not have an elevated white blood count. Her CT of her leg is negative and does not show any sort of myositis, fasciitis, gas. She has a negative DVT study. With her history of pain with very light touch, suspect that this might actually be a neuropathy. She has no midline tenderness to back pain. She is not have a straight leg rise. She does admit that she had taken a gabapentin at 1 point during her 2 weeks of pain and it did seem to help her. Our plan will be to send the patient home with NSAIDs muscle relaxants, Medrol Dosepak, small amount of gabapentin. I am going to have her follow-up with primary care. - Vital Signs Vital signs: Temp Pulse Resp BP Pulse Ox 98.3 F 88 18 124/72 100 07/23/20 10:04 07/24/20 13:47 07/24/20 13:47 07/24/20 13:47 07/24/20 13:47 - Laboratory Results Result Diagrams: 07/24/20 11:11 07/24/20 11:11 Laboratory Results Interpreted: 07/24/20 11:11 Anion Gap 2 L Critical Laboratory Results Reviewed: No Critical Results - Radiology Results Critical Radiology Results Reviewed: No Critical Results Discharge - Discharge Clinical Impression: Left thigh pain Condition: Stable Disposition: HOME, SELF-CARE Additional Instructions: Follow-up with one of the clinics listed below. Take medicines as prescribed. Return if worsening symptoms. No heavy exercise. Prescriptions: Methylprednisolone [Medrol Dosepack (4 mg/Tab) 21 Tab/Dosepak] 4 mg PO ASDIR PRN #21 tab.ds.pk PRN Reason: Gabapentin [Neurontin 100 mg Capsule] 100 mg PO TID #10 capsule Methocarbamol [Robaxin 500 mg Tablet] 500 mg PO QID #20 tablet Diclofenac Sodium [Voltaren 25 Mg Tablet] 25 mg PO BID #20 tablet. Referrals: [facility] [Provider Group] - Follow up in 1 week [facility] [Provider Group] - Follow up in 1 week
[2020-07-24 11:50] LABS: ABSOLUTE EOSINOPHILS # (AUTO) 0.1 10^3/uL (0.0-0.6); ABSOLUTE LYMPHOCYTES (AUTO) 2.3 10^3/uL (0.5-4.7); ABSOLUTE MONOCYTES (AUTO) 0.4 10^3/uL (0.1-1.4); ABSOLUTE NEUT (AUTO) 4.4 10^3/uL (1.7-8.2); BASOPHILS % (AUTO) 0.2 % (0-2); EOSINOPHILS % (AUTO) 1.1 % (0-6); HEMOGLOBIN 13.8 g/dL (12.0-15.5); LYMPHOCYTES % (AUTO) 32.5 % (13-45); MEAN CORPUSCULAR HEMOGLOBIN 30.5 pg (27.0-33.4); MEAN CORPUSCULAR HGB CONC 33.6 g/dL (32.0-36.0); MEAN CORPUSCULAR VOLUME 91 fl (80-97); MONOCYTES % (AUTO) 5.1 % (3-13); PLATELET COUNT 220 10^3/uL (150-450); RED BLOOD COUNT 4.52 10^6/uL (3.72-5.28); RED CELL DISTRIBUTION WIDTH 12.9 % (11.5-14.0); SEGMENTED NEUTROPHILS % (AUTO) 61.1 % (42-78); TOTAL CELLS COUNTED % (AUTO) 100 %; WHITE BLOOD COUNT 7.2 10^3/uL (4.0-10.5)
[2020-07-24] MEDS ORDERED: ONDANSETRON 4 MG TAB.RAPDIS PO ONE (11:52)
[2020-07-24 12:01] LABS: BLOOD UREA NITROGEN 9 mg/dL (7-20); CALCIUM 8.7 mg/dL (8.4-10.2); CREATINE KINASE 52 U/L (30-135); GLUCOSE 88 mg/dL (75-110); POTASSIUM 4.3 mmol/L (3.6-5.0)
[2020-07-24 12:07] LABS: CARBON DIOXIDE 29 mmol/L (22-30); CHLORIDE 106 mmol/L (98-107)
--- NOTE | 2020-07-24 12:24 | RADIOLOGY REPORT (SQ) ---
EXAM DESCRIPTION: VENOUS UNILATERAL LOWER IMAGES COMPLETED DATE/TIME: 07/24/2020 12:10 pm REASON FOR STUDY: pain right leg pain s/p fall x1w, +red, swollen COMPARISON: None. TECHNIQUE: Dynamic and static carrera scale and color images acquired of the right leg venous system. S elected spectral images acquired with additional compression and augmentation maneuvers. The contrala teral common femoral vein and saphenofemoral junction were also imaged. Images stored on PACS. LIMITATIONS: None. FINDINGS: COMMON FEMORAL: Normal phasicity, compression and augmentation. No visualized echogenic ma terial on carrera scale. No defects on color images. FEMORAL: Normal compression and augmentation. No visualized echogenic material on carrera scale. No defe cts on color images. POPLITEAL: Normal compression, augmentation. No visualized echogenic material on carrera scale. No defec ts on color images. CALF VESSELS: Normal compression, augmentation. No visualized echogenic material on carrera scale. No de fects on color images. GSV and SSV: Normal compression, augmentation. No visualized echogenic material on carrera scale. No def ects on color images. ANY DEEP VENOUS INSUFFICIENCY: Not evaluated. ANY EVIDENCE OF POPLITEAL CYST: No. OTHER: No other significant finding. CONTRALATERAL COMMON FEMORAL VEIN AND SAPHENOFEMORAL JUNCTION: Normal phasicity, compression and augmentation. No visualized echogenic material on carrera scale. No de fects on color images. IMPRESSION: 1. NO EVIDENCE OF DVT OR SVT IN THE RIGHT LEG. COMMENT: 1. The results of this examination were discussed with emergency department provider on at 12:18 hours. TECHNICAL DOCUMENTATION: JOB ID: [id number] [employer]- All Rights Reserved Reading location - IP/workstation name: [email or web address]
[2020-07-24 12:45] LABS: ANION GAP 2 (5-19)
--- NOTE | 2020-07-24 12:51 | RADIOLOGY REPORT (SQ) ---
EXAM DESCRIPTION: CT RT LOWER EXTREMITY WITHOUT IMAGES COMPLETED DATE/TIME: 07/24/2020 12:28 pm REASON FOR STUDY: right thigh pain, pain out of proportion to exam COMPARISON: None. EXAM PARAMETERS: TECHNIQUE:Axial imaging performed through the right thigh with reformatted coronal and sagittal imaging windowed for bone and soft tissues. Images saved to PACS. 3D IMAGING: Were 3D images as MIP, SSD, or volume rendering performed at the work station? No All CT scanners at this facility use dose modulation, iterative reconstruction, and/or weight based d osing when appropriate to reduce radiation dose to as low as reasonably achievable (ALARA). [facility]: Dose Right [facility]: [employer] [facility]: Dose Right [facility]: [employer] 4D [facility]: [employer] RADIATION DOSE: CT Rad equipment meets quality standard of care and radiation dose reduction techniqu es were employed. CTDIvol: 4.1 mGy. DLP: 239 mGy-cm. mGy. LIMITATIONS: None. FINDINGS: SOFT TISSUES: No swelling or foreign body. Soft tissue planes are maintained in the thigh . No joint effusion in the hip or knee. BONES: No acute fracture. No dislocation. MINERALIZATION: Normal. OTHER: No other significant finding. IMPRESSION: NO ACUTE OR SIGNIFICANT FINDING. TECHNICAL DOCUMENTATION: JOB ID: [id number] [facility] [id number]: Final reports with documentation of one or more dose reduction techniques (e.g., Automate d exposure control, adjustment of the mA and/or kV according to patient size, use of iterative recons truction technique) 2010 [employer]- All Rights Reserved Reading location - IP/workstation name: [email or web address]
[2020-07-24 13:49] VITALS: BP 124/72
== END 2020-07-24 13:49 | disposition home or self-care (01) ==
LOC: ER 10:00
DX: M79.652 Pain in left thigh (principal); F17.200 Nicotine dependence, unspecified, uncomplicated; Z91.81 History of falling
CPT/HCPCS: 36415; 80048; 81025; 82550; 85025; 93971; 99285